=== PATIENT | female | born 1960 | race Caucasian/White ===

== ENCOUNTER 2016-10-02 16:06 | Observation (INO) | payer BC ==
[2016-10-02] MEDS ORDERED: ASPIRIN 81 MG CHEW PO STA (16:42)
[2016-10-02] MEDS ORDERED: NITROGLYCERIN OINT 1 INCH/GM PACKET TOPICAL STA (16:42)
--- NOTE | 2016-10-02 16:45 | ED ---
General Adult HPI - General Chief complaint: Chest Pain Stated complaint: chest pain Time Seen by Provider: 10/02/16 16:37 Source: patient, EMS, RN notes reviewed Mode of arrival: EMS Limitations: no limitations - History of Present Illness Initial comments: Patient is a pleasant 56-year-old female presenting to the emergency department complaining of chest discomfort. Onset of symptoms was just prior to arrival. Patient was eating. Patient had indigestion across her chest with burning in both of her arms. No associated dyspnea, nausea, or diaphoresis. Symptoms were starting to improve however further improved with aspirin and nitroglycerin by EMS. Patient currently is symptom-free. - Related Data Home Medications Medication Instructions Recorded Confirmed Albuterol Inhaler [Ventolin Hfa 2 puff INHALATION RT-Q6H PRN 10/02/16 10/02/16 Inhaler] Assured Nasal [place] 1 spray EA NOSTRIL DAILY PRN 10/02/16 10/02/16 Ibuprofen [Motrin] 800 mg PO DAILY PRN 10/02/16 10/02/16 Ibuprofen/Pseudoephedrine HCl 2 tab PO DAILY PRN 10/02/16 10/02/16 [Advil Cold & Sinus Caplet] Levothyroxine Sodium [Synthroid] 88 mcg PO DAILY 10/02/16 10/02/16 Allergies Allergy/AdvReac Type Severity Reaction Status Date / Time No Known Allergies Allergy Verified 10/02/16 16:44 Review of Systems ROS Statement: Those systems with pertinent positive or pertinent negative responses have been documented in the HPI. ROS Other: All systems not noted in ROS Statement are negative. Constitutional: Denies: fever Eyes: Denies: eye pain ENT: Denies: ear pain Respiratory: Denies: cough Cardiovascular: Reports: chest pain Endocrine: Denies: fatigue Gastrointestinal: Denies: abdominal pain Genitourinary: Denies: dysuria Musculoskeletal: Denies: back pain Skin: Denies: rash Neurological: Denies: weakness Past Medical History Past Medical History: Thyroid Disorder History of Any Multi-Drug Resistant Organisms: None Reported Past Surgical History: Section Past Psychological History: No Psychological Hx Reported Smoking Status: Current every day smoker Past Alcohol Use History: Occasional Past Drug Use History: None Reported General Exam Limitations: no limitations General appearance: alert, in no apparent distress Head exam: Present: atraumatic Eye exam: Present: other (Exophthalmos) ENT exam: Present: normal oropharynx Neck exam: Present: normal inspection Respiratory exam: Present: normal lung sounds bilaterally. Absent: chest wall tenderness Cardiovascular Exam: Present: regular rate, normal rhythm Expanded Peripheral pulses: 2+: Radial (R), Radial (L), Dorsalis Pedis (R), Dorsalis Pedis (L) GI/Abdominal exam: Present: soft. Absent: tenderness Extremities exam: Present: normal inspection Neurological exam: Present: alert Psychiatric exam: Present: normal affect, normal mood Skin exam: Absent: rash Course Vital Signs 10/02/16 10/02/16 16:08 18:00 Temperature 98.1 F 98.1 F Pulse Rate 87 85 Respiratory 18 16 Rate Blood Pressure 174/122 172/104 O2 Sat by Pulse 90 L 96 Oximetry EKG Findings - EKG Comments: EKG Findings:: Normal sinus rhythm at 89. DC 142. QRS T4. QT 386. QTc 469. Normal axis. Normal QRS. Normal ST-T. Medical Decision Making - Medical Decision Making Patient reevaluated and resting comfortably in bed. Patient symptom-free at this time. Patient and family updated on results and plan. Case discussed in detail with Dr. Jean Baptiste, who will admit for Dr. cheung. Secondary to elevation of d-dimer and pleural thickening computed tomography scan of the chest will also be ordered. Admission orders written. IV heparin started. Consult placed for cardiology. - Lab Data Result diagrams: 10/02/16 16:24 10/02/16 16:24 Lab Results 10/02/16 10/02/16 10/02/16 Range/Units 16:24 16:24 16:24 WBC 10.7 H (3.8-10.6) k/uL RBC 4.69 (3.80-5.40) m/uL Hgb 15.6 (11.4-16.0) gm/dL Hct 45.2 (34.0-46.0) % MCV 96.2 (80.0-100.0) fL MCH 33.3 (25.0-35.0) pg MCHC 34.6 (31.0-37.0) g/dL RDW 13.4 (11.5-15.5) % Plt Count 431 (150-450) k/uL Neutrophils % 71 % Lymphocytes % 17 % Monocytes % 5 % Eosinophils % 4 % Basophils % 1 % Neutrophils # 7.6 (1.3-7.7) k/uL Lymphocytes # 1.8 (1.0-4.8) k/uL Monocytes # 0.5 (0-1.0) k/uL Eosinophils # 0.4 (0-0.7) k/uL Basophils # 0.1 (0-0.2) k/uL PT (9.0-12.0) sec INR (<1.1) APTT (22.0-30.0) sec D-Dimer (<0.60) mg/L FEU Sodium 139 (137-145) mmol/L Potassium 4.2 (3.5-5.1) mmol/L Chloride 102 (98-107) mmol/L Carbon Dioxide 26 (22-30) mmol/L Anion Gap 11 mmol/L BUN 14 (7-17) mg/dL Creatinine 0.60 (0.52-1.04) mg/dL Est GFR (MDRD) Af Amer >60 (>60 ml/min/1.73 sqM) Est GFR (MDRD) Non-Af >60 (>60 ml/min/1.73 sqM) Glucose 112 H (74-99) mg/dL Calcium 9.5 (8.4-10.2) mg/dL Magnesium 1.8 (1.6-2.3) mg/dL Total Bilirubin 0.5 (0.2-1.3) mg/dL AST 20 (14-36) U/L ALT 22 (9-52) U/L Alkaline Phosphatase 134 H (38-126) U/L Total Creatine Kinase 85 (30-135) U/L CK-MB (CK-2) 0.6 (0.0-2.4) ng/mL CK-MB (CK-2) Rel Index 0.7 Troponin I <0.012 (0.000-0.034) ng/mL Total Protein 8.2 (6.3-8.2) g/dL Albumin 4.3 (3.5-5.0) g/dL TSH 9.070 H (0.465-4.680) mIU/L Free T4 0.77 L (0.78-2.19) ng/dL Free T3 pg/mL 2.1 L (2.8-5.3) pg/ml 10/02/16 Range/Units 16:24 WBC (3.8-10.6) k/uL RBC (3.80-5.40) m/uL Hgb (11.4-16.0) gm/dL Hct (34.0-46.0) % MCV (80.0-100.0) fL MCH (25.0-35.0) pg MCHC (31.0-37.0) g/dL RDW (11.5-15.5) % Plt Count (150-450) k/uL Neutrophils % % Lymphocytes % % Monocytes % % Eosinophils % % Basophils % % Neutrophils # (1.3-7.7) k/uL Lymphocytes # (1.0-4.8) k/uL Monocytes # (0-1.0) k/uL Eosinophils # (0-0.7) k/uL Basophils # (0-0.2) k/uL PT 11.0 (9.0-12.0) sec INR 1.1 (<1.1) APTT 25.2 (22.0-30.0) sec D-Dimer 1.87 H (<0.60) mg/L FEU Sodium (137-145) mmol/L Potassium (3.5-5.1) mmol/L Chloride (98-107) mmol/L Carbon Dioxide (22-30) mmol/L Anion Gap mmol/L BUN (7-17) mg/dL Creatinine (0.52-1.04) mg/dL Est GFR (MDRD) Af Amer (>60 ml/min/1.73 sqM) Est GFR (MDRD) Non-Af (>60 ml/min/1.73 sqM) Glucose (74-99) mg/dL Calcium (8.4-10.2) mg/dL Magnesium (1.6-2.3) mg/dL Total Bilirubin (0.2-1.3) mg/dL AST (14-36) U/L ALT (9-52) U/L Alkaline Phosphatase (38-126) U/L Total Creatine Kinase (30-135) U/L CK-MB (CK-2) (0.0-2.4) ng/mL CK-MB (CK-2) Rel Index Troponin I (0.000-0.034) ng/mL Total Protein (6.3-8.2) g/dL Albumin (3.5-5.0) g/dL TSH (0.465-4.680) mIU/L Free T4 (0.78-2.19) ng/dL Free T3 pg/mL (2.8-5.3) pg/ml - Radiology Data Radiology results: report reviewed (Computed tomography scan of the brain shows no acute intercranial abnormality. Symmetrical orbital abnormalities possibly related to thyroid, tumor cannot be excluded.), image reviewed (Left lower lateral chest wall pleural thickening.) Critical Care Time Critical Care Time: Yes Total Critical Care Time: 33 Disposition Clinical Impression: Unstable angina pectoris Disposition: ADMITTED IP TO [facility] Condition: Serious Time of Disposition: 18:21
[2016-10-02 16:59] LABS: Basophils # (A) 0.1 k/uL (0-0.2); Basophils % (A) 1 %; CH 33.3; CHCM 34.8; Eosinophils # (A) 0.4 k/uL (0-0.7); Eosinophils % (A) 4 %; HCT 45.2 % (34.0-46.0); HDW 2.67; HGB 15.6 gm/dL (11.4-16.0); Luc # (Auto) 0.18; Luc % (Auto) 2; Lymphocytes # (A) 1.8 k/uL (1.0-4.8); Lymphocytes % (A) 17 %; MCH 33.3 pg (25.0-35.0); MCHC 34.6 g/dL (31.0-37.0); MCV 96.2 fL (80.0-100.0); Mean Platelet Volume 6.7; Monocytes # (A) 0.5 k/uL (0-1.0); Monocytes % (A) 5 %; Neutrophils # (A) 7.6 k/uL (1.3-7.7); Neutrophils % (A) 71 %; RBC 4.69 m/uL (3.80-5.40); RDW 13.4 % (11.5-15.5); WBC 10.7 k/uL (3.8-10.6); WBC (Perox) 10.61
[2016-10-02 17:07] LABS: ALT 22 U/L (9-52); AST 20 U/L (14-36); Alkaline Phosphatase 134 U/L (38-126); Anion Gap 11 mmol/L; Blood Urea Nitrogen 14 mg/dL (7-17); Calcium 9.5 mg/dL (8.4-10.2); Carbon Dioxide 26 mmol/L (22-30); Chloride 102 mmol/L (98-107); Glucose 112 mg/dL (74-99); Magnesium 1.8 mg/dL (1.6-2.3); Non-African American GFR(MDRD) >60 (>60 ml/min/1.73 sqM); Potassium 4.2 mmol/L (3.5-5.1); Sodium 139 mmol/L (137-145); Total Bilirubin 0.5 mg/dL (0.2-1.3); Total Protein 8.2 g/dL (6.3-8.2)
[2016-10-02 17:23] LABS: INR 1.1 (<1.1); Partial Thromboplastin Time 25.2 sec (22.0-30.0)
[2016-10-02 17:28] LABS: Creatine Kinase 85 U/L (30-135)
--- NOTE | 2016-10-02 17:30 | XR ---
EXAMINATION TYPE: XR chest 2V DATE OF EXAM: 10/02/2016 5:24 PM COMPARISON: NONE HISTORY: Chest pain TECHNIQUE: Frontal and lateral views of the chest are obtained. FINDINGS: There is pleural thickening at the lateral left lung base that measures up to 3 cm. There is mild coarsening of interstitial markings. There are no hilar masses. Trachea is midline. There are chest leads. Thoracic spine is intact. IMPRESSION: There is moderate pleural thickening at the left lower lateral chest wall that could rel ate to loculated pleural fluid or pleural based mass or pulmonary infarct. Follow-up is recommended. There is mild pulmonary interstitial edema.
[2016-10-02 17:39] LABS: Creatine Kinase MB 0.6 ng/mL (0.0-2.4); Troponin I <0.012 ng/mL (0.000-0.034)
[2016-10-02] MEDS ORDERED: RX INFO: IV CONTRAST WAS GIVEN 1 EACH MISC MISCELLANE PRN (18:08)
--- NOTE | 2016-10-02 18:08 | CT ---
EXAMINATION TYPE: CT brain wo con DATE OF EXAM: 10/02/2016 5:41 PM COMPARISON: NONE HISTORY: Patient poor historian. Patient denies head complaints. Patient complains of chest pain. CT DLP: 1061 mGycm Automated exposure control for dose reduction was used. FINDINGS: Ventricles and sulci appear normal. There is no mass effect nor midline shift. There is no sign of in tracranial hemorrhage. The calvarium is intact. There is mild mucosal thickening in the ethmoid sinus . There is symmetric bulbous enlargement of the inferior rectus muscles at the apex of both bony orbi ts. This measures 1.3 cm in diameter. There is some thickening of the medial rectus muscles. The calv arium is intact. The orbits are not completely evaluated and are not entirely included on the exam. IMPRESSION: No intracranial abnormality seen. There are symmetric orbital abnormalities I could relate to bilater al thyroid ophthalmopathy. Tumor cannot be excluded. Clinical correlation is recommended. Minimal eth moid sinusitis.
[2016-10-02] MEDS ORDERED: NITROGLYCERIN SL TABS 0.4 MG TAB SUBLINGUAL PRN (18:21)
[2016-10-02] MEDS ORDERED: HEPARIN SODIUM,PORCINE 5,000 UNIT/ML 1 ML VIAL IV PRN (18:21)
[2016-10-02] MEDS ORDERED: HEPARIN SODIUM,PORCINE 5,000 UNIT/ML 1 ML VIAL IV ONE (18:21)
[2016-10-02] MEDS ORDERED: ATENOLOL 25 MG TAB PO STA (18:23)
[2016-10-02] MEDS ORDERED: HEPARIN SODIUM,PORCINE/D5W PMX 25,000 UNIT in DEXTROSE/WATER 1 500ML.BAG IV SCH (18:30)
[2016-10-02 18:59] VITALS: RESP 18
--- NOTE | 2016-10-02 19:17 | CT ---
EXAMINATION TYPE: CT angio chest DATE OF EXAM: 10/02/2016 6:59 PM COMPARISON: NONE HISTORY: Patient complains of episode of chest pain today. CT DLP: 516 mGycm Automated exposure control for dose reduction was used. CONTRAST: CTA scan of the thorax is performed with IV Contrast, patient injected with 100 mL of Omnipaque 350, pulmonary embolism protocol. There are 3-D post processed images.. FINDINGS: There is extensive interstitial infiltrate in both lungs with groundglass density. There is reticular infiltrate in the periphery of both lungs. There is pleural thickening along the left lateral chest wall that appears loculated and not mobile. There is no pericardial effusion. I see no filling defects in the pulmonary arteries. There are a few bronchial and mediastinal lymph n odes that measure up to 1 cm. There is no evidence of aortic aneurysm or dissection. The bony thorax appears intact. IMPRESSION: NO EVIDENCE OF PULMONARY EMBOLISM. EXTENSIVE INTERSTITIAL LUNG DISEASE. THERE IS LOCULATED PLEURAL THICKENING ON THE LEFT LATERAL CHEST WALL AND LEFT LUNG BASE. I WOULD CONS IDER CHRONIC EMPYEMA. TUMOR IS NOT EXCLUDED. THERE IS MILD MEDIASTINAL ADENOPATHY AND BRONCHIAL ADENO [place] PROBABLY DUE TO INFLAMMATORY DISEASE.
[2016-10-02] MEDS ORDERED: ACETAMINOPHEN TAB 325 MG TAB PO PRN (21:17)
[2016-10-02 21:39] VITALS: BMI 30.3
[2016-10-02] MEDS ORDERED: ENALAPRILAT 1.25 MG/ML 1 ML VIAL IVP PRN (22:42)
[2016-10-02] MEDS ORDERED: LEVOFLOXACIN 500MG-D5W PMX 500 MG in DEXTROSE/WATER 1 100ML.BAG IVPB SCH (22:45)
[2016-10-02] MEDS ORDERED: IBUPROFEN 200 MG TAB PO PRN (22:46)
[2016-10-02] MEDS ORDERED: ALBUTEROL NEBULIZED 2.5 MG/3 ML INHALATION PRN (22:46)
[2016-10-02] MEDS ORDERED: ASSURED EA NOSTRIL PRN (22:46)
[2016-10-03] MEDS: NITROGLYCERIN OINT 1 INCH/GM PACKET TOPICAL SCH ×3 (00:24→13:19)
[2016-10-03 00:26] LABS: Creatine Kinase 84 U/L (30-135)
[2016-10-03] MEDS: PIPERACILLIN-TAZOBACTAM 3.375 GM in DEXTROSE/WATER 1 50ML.BAG IVPB SCH ×2 (00:28→10:07)
[2016-10-03 00:37] LABS: Creatine Kinase MB 0.6 ng/mL (0.0-2.4); Troponin I <0.012 ng/mL (0.000-0.034)
[2016-10-03] MEDS ORDERED: LEVOTHYROXINE 88 MCG TAB PO SCH (06:30)
[2016-10-03 06:54] LABS: Mean Platelet Volume 6.9
[2016-10-03 07:17] LABS: Cholesterol 229 mg/dL (<200); HDL Cholesterol 34 mg/dL (40-60); Triglycerides 255 mg/dL (<150)
[2016-10-03 07:35] LABS: Creatine Kinase 75 U/L (30-135)
[2016-10-03 07:48] LABS: Creatine Kinase MB 0.6 ng/mL (0.0-2.4); Troponin I <0.012 ng/mL (0.000-0.034)
--- NOTE | 2016-10-03 08:42 | P.CRDCN ---
History of Present Illness Consult date: 10/03/16 History of present illness: This is Dr. Damon dictating a consultation on this 56-year-old female who was admitted to the hospital with complaints of chest pain. Patient has history of hypothyroidism, and chronic smoking. Yesterday apparently she started having a discomfort across the chest from axilla to axilla when she was sitting. This was not associated with any nausea vomiting or sweating. She was not short of breath but she started feeling some aching sensation in the both charts near the mandibular joints. She was concerned and and went to the EMS station where one of her friends works. They put on monitor and gave her some nitro. By the time they gave the nitro, the pain has already subsided. Her blood pressure, however, has been high since admission. She required IV Vasotec. Today her blood pressure is normal. Her EKG did not reveal any acute changes. Cardiac enzyme studies are negative. Chest x-ray showed left-sided pleural thickening and/or pleural-based mass. She gives history of having a pneumothorax or fractured ribs requiring chest tube placement in the past and this could be related to that. We will get an echo [place] today. We'll continue medical therapy. He patient remains stable, patient will be discharged home within 24 hours and a outpatient stress test could be arranged. However the patient hasn't had recurrence of chest pains, further cardiac evaluation to be done as an inpatient Review of Systems REVIEW OF SYSTEMS: CONSTITUTIONAL:. Patient is doing well. No complaints of fever or chills EYES: Denies diplopia, blurring of vision EARS, NOSE, MOUTH, THROAT: Denies headaches, denies sore throat. CARDIOVASCULAR: As per the chart RESPIRATORY: As per the chart and patient has history of previous pneumothorax and chest tube placement GASTROINTESTINAL: Denies change in appetite, denies abdominal pain, denies diarrhea GENITOURINARY: Denies hematuria, denies infections. MUSKULOSKELETAL: Denies pain, denies swelling. Denies any cramps or claudication INTEGUMENTARY: Denies rash, denies eczema. NEUROLOGICAL: Denies focal weakness, or visual disturbance. Denies any dizziness or syncope PSYCHIATRIC: Denies anxiety, denies depression. HEMATOLOGIC/LYMPHATIC: Denies any bleeding, denies enlarged lymph nodes. Past Medical History Past Medical History: Cancer, Osteoarthritis (OA), Thyroid Disorder Additional Past Medical History / Comment(s): skin CA removed from breast History of Any Multi-Drug Resistant Organisms: None Reported Past Surgical History: Section Additional Past Surgical History / Comment(s): C-sec X2, uterine ablation, eye surgery from [facility] Dx, sinus surgery Past Anesthesia/Blood Transfusion Reactions: No Reported Reaction Past Psychological History: No Psychological Hx Reported Smoking Status: Former smoker Past Alcohol Use History: Occasional Past Drug Use History: None Reported - Past Family History Mother Family Medical History: Coronary Artery Disease (CAD), CVA/TIA, Diabetes Mellitus, Hypertension Father Family Medical History: Diabetes Mellitus, Rheumatoid Arthritis (RA) Additional Family Medical History / Comment(s): pericardial fluid removal x2 Brother(s) Family Medical History: Diabetes Mellitus Medications and Allergies Home Medications Medication Instructions Recorded Confirmed Type Albuterol Inhaler [Ventolin Hfa 2 puff INHALATION RT-Q6H PRN 10/02/16 10/02/16 History Inhaler] Assured Nasal [place] 1 spray EA NOSTRIL DAILY PRN 10/02/16 10/02/16 History Ibuprofen [Motrin] 800 mg PO DAILY PRN 10/02/16 10/02/16 History Ibuprofen/Pseudoephedrine HCl 2 tab PO DAILY PRN 10/02/16 10/02/16 History [Advil Cold & Sinus Caplet] Levothyroxine Sodium [Synthroid] 88 mcg PO DAILY 10/02/16 10/02/16 History Allergies Allergy/AdvReac Type Severity Reaction Status Date / Time adhesive tape AdvReac Rash/Hives Verified 10/02/16 21:53 diphenhydramine AdvReac Unknown Verified 10/02/16 21:47 [From Benadryl] Physical Exam Vitals: Vital Signs Temp Pulse Pulse Resp BP BP Pulse Ox 10/03/16 08:00 98.2 F 69 18 141/86 95 10/03/16 04:00 98.2 F 73 18 134/75 92 L 10/03/16 00:00 70 18 10/02/16 23:18 83 18 129/69 93 L 10/02/16 19:44 98.1 F 75 18 165/101 95 10/02/16 18:57 97.6 F 88 18 160/89 96 Intake and Output 10/02/16 10/03/16 10/03/16 22:59 06:59 14:59 Intake Total 260 695 Balance 260 695 Intake: IV 160 320 0.9 NS @ KVO 80 160 Heparin Sodium,Porcine/ 80 160 D5w Pmx 25,000 unit In Dextrose/Water 1 500ml. bag @ 20 mls/hr IV .Q24H [facility] Rx#:[id number] Intake, IV Titration 100 175 Amount Heparin Sodium,Porcine/ 125 D5w Pmx 25,000 unit In Dextrose/Water 1 500ml. bag @ 20 mls/hr IV .Q24H [facility] Rx#:[id number] Levofloxacin 500Mg-D5w 100 Pmx 500 mg In Dextrose/ Water 1 100ml.bag @ 100 mls/hr IVPB HS [facility] Rx#: [id number] Piperacillin-Tazobactam 3 50 .375 gm In Dextrose/Water 1 50ml.bag @ 12.5 mls/hr IVPB Q8HR [facility] Rx#: [id number] Oral 200 Other: # Voids 2 Weight 85.4 kg Results 10/03/16 06:25 10/02/16 16:24 Cardiac Enzymes 10/02/16 10/03/16 Range/Units 23:20 06:25 CK-MB (CK-2) 0.6 0.6 (0.0-2.4) ng/mL Troponin I <0.012 <0.012 (0.000-0.034) ng/mL Coagulation 10/02/16 10/03/16 Range/Units 23:20 06:25 APTT 30.3 H 31.8 H (22.0-30.0) sec Lipids 10/03/16 Range/Units 06:25 Triglycerides 255 H (<150) mg/dL Cholesterol 229 H (<200) mg/dL HDL Cholesterol 34 L (40-60) mg/dL CBC 10/03/16 Range/Units 06:25 Plt Count 405 (150-450) k/uL Current Medications Generic Name Dose Route Start Last Admin Trade Name Freq PRN Reason Stop Dose Admin Acetaminophen 650 mg 10/02/16 21:17 10/02/16 21:44 Tylenol Tab PO 650 mg Q6HR PRN Administration Fever and/ or Mild Pain Hydrocodone Bitart/Acetaminophen 1 each 10/02/16 22:44 Ruth 5-325 PO Q6HR PRN Moderate Pain Albuterol Sulfate 2.5 mg 10/02/16 22:46 Ventolin Nebulized INHALATION RT-Q6H PRN Shortness Of Breath Aspirin 325 mg 10/03/16 09:00 Aspirin PO DAILY [facility] Enalaprilat 1.25 mg 10/02/16 22:42 Vasotec IVP Q6HR PRN Blood Pressure - High Heparin Sodium (Porcine) 0 unit 10/02/16 18:21 Heparin IV Q6HR PRN Low PTT Protocol Heparin Sodium/Dextrose 25,000 500 mls @ 20 mls/hr 10/02/16 18:30 10/03/16 00 :48 unit/ IV Solution IV 1,300 unit/hr .Q24H [facility] 26 mls/hr Protocol Titration Levofloxacin 500 mg/ IV 100 mls @ 100 mls/hr 10/02/16 22:45 10/02/16 23:30 Solution IVPB 100 mls/hr HS [facility] Administration Piperacillin/Tazobactam/ 50 mls @ 12.5 mls/hr 10/03/16 00:00 10/03/16 00:28 Dextrose 3.375 gm/ IV Solution IVPB 12.5 mls/hr Q8HR [facility] Administration Levothyroxine Sodium 88 mcg 10/03/16 06:30 10/03/16 06:44 Synthroid PO 88 mcg 0630 [facility] Administration Miscellaneous Information 1 each 10/02/16 18:08 Rx Info: Iv Contrast Was Given MISCELLANE 10/04/16 18:08 DAILY PRN Per Protocol Nicotine 1 patch 10/03/16 09:00 Habitrol 21mg/24hr Patch TRANSDERM DAILY [facility] Nitroglycerin 1 inch 10/03/16 00:00 10/03/16 06:24 Nitro-Bid Oint TOPICAL Not Given Q6HR [facility] Nitroglycerin 0.4 mg 10/02/16 18:21 Nitrostat SUBLINGUAL Q5M PRN Chest Pain Intake and Output 10/02/16 10/03/16 10/03/16 22:59 06:59 14:59 Intake Total 260 695 Balance 260 695 Intake: IV 160 320 0.9 NS @ KVO 80 160 Heparin Sodium,Porcine/ 80 160 D5w Pmx 25,000 unit In Dextrose/Water 1 500ml. bag @ 20 mls/hr IV .Q24H [facility] Rx#:[id number] Intake, IV Titration 100 175 Amount Heparin Sodium,Porcine/ 125 D5w Pmx 25,000 unit In Dextrose/Water 1 500ml. bag @ 20 mls/hr IV .Q24H [facility] Rx#:[id number] Levofloxacin 500Mg-D5w 100 Pmx 500 mg In Dextrose/ Water 1 100ml.bag @ 100 mls/hr IVPB HS [facility] Rx#: [id number] Piperacillin-Tazobactam 3 50 .375 gm In Dextrose/Water 1 50ml.bag @ 12.5 mls/hr IVPB Q8HR [facility] Rx#: [id number] Oral 200 Other: # Voids 2 Weight 85.4 kg 10/03/16 06:25 EKG Interpretations (text) Sinus rhythm Assessment and Plan (1) Chest pain Status: Acute (2) Hypertension Status: Acute (3) Hypothyroidism Status: Acute (4) Smoking Status: Acute Plan: Patient had a prolonged chest pain with the Pain. Anginal syndrome to be considered. Cardiac enzymes studies and EKGs are negative. We'll treat her with aspirin, beta jhonatan, nitrates and increase her activity. He patient remains stable, patient could be discharged home to have an stress test as an outpatient. We'll get an echocardiogram. However, if patient has any recurrence of pain, inpatient evaluation including cardiac catheterization to be considered
[2016-10-03] MEDS ORDERED: NICOTINE 21MG/24HR PATCH TRANSDERM SCH (09:00)
[2016-10-03] MEDS ORDERED: METOPROLOL TARTRATE 25 MG TAB PO SCH (09:00)
[2016-10-03] MEDS ORDERED: ASPIRIN 325 MG TAB PO SCH (09:00)
[2016-10-03] MEDS: HYDROcodone/APAP 5-325MG 1 EACH TAB PO PRN ×2 (09:26→15:17)
[2016-10-03 11:55] VITALS: BP 117/70; PULSE 71; TEMP 97.9
--- NOTE | 2016-10-03 13:29 | P.HPIM ---
History of Present Illness H&P Date: 10/03/16 Chief Complaint: Chest Pain Patient is a 56-year-old female who presented to [facility] was a chief complaint of chest pain Patient describes a pressure sensation in the middle of her chest radiating to the left axillary area, there was no nausea or vomiting no diaphoresis and no shortness of breath, patient stated that her chest pain resolved while she was in the emergency room . She was started on IV heparin and was admitted to 24- hour observation unit. Cardiology consultation was requested. D-dimer was elevated in the emergency room computed tomography scan of the chest was done and did not reveal any evidence of pulmonary embolism however it revealed evidence of pleural thickening and enlarged lymph nodes, pulmonary consultation was requested. Patient has a known history of hypothyroidism she is maintained on Synthroid 88 g by mouth daily, her TSH free T4 wherever abnormal showing evidence of hypothyroidism, patient states that she has been taking her Synthroid regularly. Past Medical History Past Medical History: Cancer, Osteoarthritis (OA), Thyroid Disorder Additional Past Medical History / Comment(s): skin CA removed from breast History of Any Multi-Drug Resistant Organisms: None Reported Past Surgical History: Section Additional Past Surgical History / Comment(s): C-sec X2, uterine ablation, eye surgery from [facility], sinus surgery Past Anesthesia/Blood Transfusion Reactions: No Reported Reaction Past Psychological History: No Psychological Hx Reported Smoking Status: Former smoker Past Alcohol Use History: Occasional Past Drug Use History: None Reported - Past Family History Mother Family Medical History: Coronary Artery Disease (CAD), CVA/TIA, Diabetes Mellitus, Hypertension Father Family Medical History: Diabetes Mellitus, Rheumatoid Arthritis (RA) Additional Family Medical History / Comment(s): pericardial fluid removal x2 Brother(s) Family Medical History: Diabetes Mellitus Medications and Allergies Home Medications Medication Instructions Recorded Confirmed Type Albuterol Inhaler [Ventolin Hfa 2 puff INHALATION RT-Q6H PRN 10/02/16 10/02/16 History Inhaler] Assured Nasal [place] 1 spray EA NOSTRIL DAILY PRN 10/02/16 10/02/16 History Ibuprofen [Motrin] 800 mg PO DAILY PRN 10/02/16 10/02/16 History Ibuprofen/Pseudoephedrine HCl 2 tab PO DAILY PRN 10/02/16 10/02/16 History [Advil Cold & Sinus Caplet] Levothyroxine Sodium [Synthroid] 88 mcg PO DAILY 10/02/16 10/02/16 History Allergies Allergy/AdvReac Type Severity Reaction Status Date / Time adhesive tape AdvReac Rash/Hives Verified 10/02/16 21:53 diphenhydramine AdvReac Unknown Verified 10/02/16 21:47 [From Benadl] Physical Exam Vitals: Vital Signs Temp Pulse Pulse Resp BP BP Pulse Ox 10/03/16 11:54 97.9 F 71 18 117/70 94 L 10/03/16 08:00 98.2 F 69 18 141/86 95 10/03/16 04:00 98.2 F 73 18 134/75 92 L 10/03/16 00:00 70 18 10/02/16 23:18 83 18 129/69 93 L 10/02/16 19:44 98.1 F 75 18 165/101 95 10/02/16 18:57 97.6 F 88 18 160/89 96 Intake and Output 10/02/16 10/03/16 10/03/16 22:59 06:59 14:59 Intake Total 260 695 Balance 260 695 Intake: IV 160 320 0.9 NS @ KVO 80 160 Heparin Sodium,Porcine/ 80 160 D5w Pmx 25,000 unit In Dextrose/Water 1 500ml. bag @ 20 mls/hr IV .Q24H [facility] Rx#:[id number] Intake, IV Titration 100 175 Amount Heparin Sodium,Porcine/ 125 D5w Pmx 25,000 unit In Dextrose/Water 1 500ml. bag @ 20 mls/hr IV .Q24H [facility] Rx#:[id number] Levofloxacin 500Mg-D5w 100 Pmx 500 mg In Dextrose/ Water 1 100ml.bag @ 100 mls/hr IVPB HS [facility] Rx#: [id number] Piperacillin-Tazobactam 3 50 .375 gm In Dextrose/Water 1 50ml.bag @ 12.5 mls/hr IVPB Q8HR [facility] Rx#: [id number] Oral 200 Other: Voiding Method Toilet # Voids 2 Weight 85.4 kg In general patient is alert and oriented 3 in no apparent distress HEENT head normocephalic and atraumatic Neck is supple no JVD no goiter no lymphadenopathy Chest exam reveals a few scattered crackles no wheezing Cardiac exam reveals regular heart sounds S1 and S2 no gallops no murmurs Abdomen is soft nontender no organomegaly Extremity exam reveals no edema no cyanosis or clubbing Results CBC & Chem 7: 10/03/16 06:25 10/02/16 16:24 Labs: Abnormal Lab Results - Last 24 Hours (Table) 10/02/16 10/03/16 10/03/16 Range/Units 23:20 06:25 06:25 APTT 30.3 H 31.8 H (22.0-30.0) sec Triglycerides 255 H (<150) mg/dL Cholesterol 229 H (<200) mg/dL LDL Cholesterol, Calc 144 H (0-99) mg/dL HDL Cholesterol 34 L (40-60) mg/dL Thrombosis Risk Factor Assmnt - Choose All That Apply Each Factor Represents 1 point: Age 41-60 years Thrombosis Risk Factor Assessment Total Risk Factor Score: 1 Thrombosis Risk Factor Assessment Level: Low Risk Assessment and Plan Plan: #1 episode of chest pain resolved no recurrence of chest pain cardiac enzymes and EKGs are normal so far, echo cardiogram done results are still pending #2 abnormal computed tomography scan of the chest pulmonary consultation was requested awaiting input #3 hypothyroidism will increase dose of Synthroid from 88 g to 100 g daily #4 underlying history of hypertension with elevated blood pressure readings during this admission requiring use of IV Vasotec At this time 1 awaiting echocardiogram results awaiting input from pulmonary will follow closely
--- NOTE | 2016-10-03 14:35 | P.DS ---
Providers Date of admission: 10/02/16 18:21 Expected date of discharge: 10/03/16 Attending physician: Reuben Jean Baptiste Consults: 10/02/16 22:45 Consult Physician Urgent Consulting Provider: Raoul Saul Reason/Comments: freelance writer Do you want consulting provider notified?: Yes, Notify in am [facility] Course: Diagnosis on discharge #1 episode of chest pain And BRCA2 hypothyroidism #3 abnormal computed tomography scan of the chest was pleural thickening and enlarged lymph nodes Hospital course patient is a 56-year-old female who presented to [facility] was a chief complaint of chest pain Serial EKG and cardiac enzymes did not reveal any evidence of acute myocardial infarction She did not have any recurrence of her chest pain She was evaluated by cardiology and was cleared for discharge she would undergo stress test as outpatient D dimer was elevated on presentation patient underwent computed tomography scan of the chest that did not reveal any evidence of pulmonary embolism However computed tomography scan revealed patchy infiltrates pleural thickening and enlarged lymph nodes Patient was started on IV antibiotics, pulmonary consultation was requested Patient was seen by Dr. Saul and was cleared for discharge Follow-up with him for further evaluation as outpatient with possible bronchoscopy Patient was counseled in length during this hospitalization more than 10 minutes for smoking cessation she was given a prescription for NicoDerm patches She was also given a prescription for Levaquin 500 milligram 1 daily for 5 more days Patient had evidence of hypothyroidism not well controlled her dose of Synthroid was increased from 88 g to 100 g daily she should be followed in one 1 months to 2 months with repeat TSH and adjustment of her Synthroid dose if needed Patient also given a prescription for sublingual nitro and aspirin and metoprolol 25 mg twice daily Otherwise she will continue on her same home medication as prior to admission Patient Condition at Discharge: Serious Plan - Discharge Summary New Discharge Prescriptions: Levothyroxine Sodium [Synthroid] 100 mcg PO DAILY #30 tab Discharge Medication List Albuterol Inhaler [Ventolin Hfa Inhaler] 2 puff INHALATION RT-Q6H PRN 10/02/16 [ History] Assured Nasal Daykin 1 spray EA NOSTRIL DAILY PRN 10/02/16 [History] Ibuprofen [Motrin] 800 mg PO DAILY PRN 10/02/16 [History] Ibuprofen/Pseudoephedrine HCl [Advil Cold & Sinus Caplet] 2 tab PO DAILY PRN [History] Aspirin 325 mg PO DAILY tab 10/03/16 [Rx] Levofloxacin [Levaquin] 500 mg PO HS tab 10/03/16 [Rx] Levothyroxine Sodium [Synthroid] 100 mcg PO DAILY #30 tab 10/03/16 [Rx] Metoprolol Tartrate [Lopressor] 25 mg PO BID tab 10/03/16 [Rx] Nicotine 21Mg/24Hr Patch [Habitrol] 1 patch TRANSDERM DAILY patch 10/03/16 [Rx] Nitroglycerin Sl Tabs [Nitrostat] 0.4 mg SUBLINGUAL Q5M PRN #0 tab 10/03/16 [Rx] Follow up Appointment(s)/Referral(s): Haleigh Armenta MD [Primary Care Provider] - 1-2 days
--- NOTE | 2016-10-03 15:21 | ECHOF ---
Referral Reason:ua MEASUREMENTS -------- HEIGHT: 165.1 cm WEIGHT: 85.3 kg BP: 130/50 RVIDd: 2.6 cm (< 3.3) IVSd: 1.1 cm (0.6 - 1.1) LVIDd: 5.5 cm (3.9 - 5.3) LVPWd: 1.2 cm (0.6 - 1.1) IVSs: 1.3 cm LVIDs: 4.8 cm LVPWs: 1.3 cm LA Diam: 3.2 cm (2.7 - 3.8) LAESV Index (A-L): 29.69 ml/m Ao Diam: 2.8 cm (2.0 - 3.7) AV Cusp: 1.4 cm (1.5 - 2.6) LA Diam: 3.6 cm (2.7 - 3.8) MV EXCURSION: 20.477 mm (> 18.000) MV EF SLOPE: 89 mm/s (70 - 150) EPSS: 1.0 cm MV E Elvis: 0.86 m/s MV DecT: 216 ms MV A Elvis: 0.74 m/s MV E/A Ratio: 1.15 RAP: 5.00 mmHg RVSP: 17.25 mmHg FINDINGS -------- Sinus rhythm. This was a technically adequate study. There is mild concentric left ventricular hypertrophy. Overall left ventricular systolic function is low-normal with, an EF between 50 - 55 %. The right ventricle is normal in size. LA is moderately dilated 34-39 ml/m2 The right atrial size is normal. There is mild aortic valve sclerosis. There is no evidence of aortic regurgitation. Mild mitral regurgitation is present. Mild tricuspid regurgitation present. There is no evidence of pulmonary hypertension. The right ventricular systolic pressure, as measured by Doppler, is 17.25mmHg. There is no pulmonic regurgitation present. The aortic root size is normal. There is no pericardial effusion. CONCLUSIONS -------- 1. There is mild concentric left ventricular hypertrophy. 2. LA is moderately dilated 34-39 ml/m2 3. There is mild aortic valve sclerosis. 4. Mild mitral regurgitation is present. 5. Mild tricuspid regurgitation present. 6. There is no evidence of pulmonary hypertension. 7. The right ventricular systolic pressure, as measured by Doppler, is 17.25mmHg. SECURITY INSPECTOR: Marleny Welch RDCS
--- NOTE | 2016-10-03 15:33 | CONS ---
DATE OF CONSULTATION: 56-year-old female who presented to the emergency department on October 02. She saw Dr. Hill down there. She apparently was complaining of the jaw and chest discomfort. The patient apparently started having complaints right prior to admission. She was apparently eating at that time. She apparently had some indigestion across her chest with burning in both her lungs. I did not have any associated dyspnea, nausea, or diaphoresis. When she got to the emergency room, her symptoms were starting to improve. She also received some aspirin and nitroglycerin by EMS. Her home medications include albuterol nasal spray, ibuprofen, Advil, levothyroxine. ALLERGIES: Denied. Medical history includes hypothyroidism. Surgical history includes a . Social is positive for ongoing tobacco use. Denies any illicit drug use. Occasional alcohol use. Her primary doctor is Dr. Armenta. Occupational history is noncontributory. REVIEW OF SYSTEMS: CONSTITUTIONAL: Negative. NEUROLOGICAL: Negative. HEENT: Negative. CARDIOVASCULAR: See above, chest pain and jaw pain. PULMONARY: Negative. GI/: Negative. RHEUMATOLOGICAL/IMMUNOLOGIC: Negative. ENDOCRINOLOGIC: Negative. The patient had a CT scan of the chest which showed no evidence of pulmonary embolism. She did have extensive interstitial disease in a loculated pleural thickening on the left lateral chest wall, probably related to previous episode of pneumothorax and chest tube placement. This was many years back. Current vital signs show temperature 97.9, heart rate 71, respiratory rate 18, blood pressure 117/70, mean 85, room-air saturation 95%. Appears in no acute distress. Resting comfortably. HEENT examination is grossly unremarkable save for proptosis from Graves' disease. Mucous membranes are moist. No oral lesions. Neck is supple. Full range of motion. No adenopathy without megaly. Cardiovascular examination reveals regular rhythm and rate. S1, S2 normal. No S3, S4 or murmur. Lungs reveal a few scattered crackles. Breath sounds equal. No wheezes. No rhonchi. Abdomen is soft. Bowel sounds are heard. No masses or tenderness. Extremities are intact. No cyanosis, clubbing or edema. Skin is without rash or lesions. Neurological examination is brief, but nonfocal. Labs are reviewed. White count 10.7, hemoglobin and hematocrit, and platelet count are all normal. PT, PTT and INR are all normal. D-dimer is 1.87. Sodium, potassium, chloride and CO2 all normal. BUN and creatinine were normal. Alkaline phosphatase 134. Troponins were negative x3. TSH was 9.070, FT4 0.77 and free T3 2.1. She is supposed to be on thyroid hormone and obviously will need some additionally thyroid hormone because she is not properly controlled. X-rays including the chest x-ray and a CAT scan were reviewed. ASSESSMENT: 1. Chest pain with jaw pain, rule out ischemic heart disease/acute coronary syndrome. 2. Probable underlying lung disease in the form of interstitial disease and/or chronic obstructive pulmonary disease from tobacco use. 3. Previous history of pneumothorax with chest tube placement; hence, the explanation for the lateral pleural thickening as seen on CAT scan and chest x-ray. 4. History of hypothyroidism. 5. History of chronic tobacco use. 6. History of previous Graves' disease with thyroid oculopathy and proptosis. PLAN: I gave the patient my card. She should come and see me in the office. She would need a thorough evaluation including PFT and a 6 minute walk distance. Additional recommendations and suggestions are forthcoming. She may have a combination of both obstructive and restrictive lung disease.
[2016-10-03] MEDS ORDERED: LEVOFLOXACIN 500 MG TAB PO SCH (21:00)
== END 2016-10-03 15:41 | disposition home or self-care (01) ==
LOC: EC 16:06 → 3OBS 18:21
PROVIDERS: ADMIT Internal Medicine; ATTEND Internal Medicine
DX: R07.9 Chest pain, unspecified (principal); R68.84 Jaw pain; Z79.899 Other long term (current) drug therapy; F17.200 Nicotine dependence, unspecified, uncomplicated; E03.9 Hypothyroidism, unspecified; I10 Essential (primary) hypertension; R59.9 Enlarged lymph nodes, unspecified; K30 Functional dyspepsia; J92.9 Pleural plaque without asbestos; H05.20 Unspecified exophthalmos
CPT/HCPCS: 99291 ×2; 96365 ×2; 96376 ×2; 36415; 93005; 93306; 85379; 84439; 84481; 80061; 80053; 82550 ×2; 82553 ×2; 83735; 84443; 84484 ×2; 85025; 85049; 85610; 85730 ×2; 71020; 70450; 71275; G0378 ×2; J1644 ×2; Q9967; J1956; J2543; 96366; 96367; 96368

== ENCOUNTER → 2016-10-15 | Outpatient (CLI) | payer BC ==
[~2016-10-15] MED LIST: REGADENOSON 0.4 MG/5 ML SYRINGE IV ONE
--- NOTE | 2016-10-15 12:04 | EST ---
DATE OF SERVICE: 10/15/2016 AGE: 56Y SEX: F HT: 5'5" WT: 185 lbs. Lexiscan Cardiolite Stress Test *Heart Rate Blood Pressure *Rest: 75 Rest: 134/90 * *Max. Achieved: 90 Maximum BP: 146/91 85% PMHR: 140 100% PMHR: 165 *METS: - INDICATIONS: Chest pressure. MEDICATIONS: Synthroid, metoprolol, aspirin. Baseline EKG revealed a normal sinus rhythm without significant ST-T changes. With Lexiscan administration, heart rate changed from 75 to 90 beats per minute and blood pressure changed from 134/90 to 146/91. EKG remained unremarkable and patient had transient headache and shortness of breath. By EKG criteria, this is an unremarkable Lexiscan stress test. The nuclear scan results, which are more pertinent, will be reported by the radiologist.
--- NOTE | 2016-10-15 14:51 | NM ---
EXAMINATION TYPE: NM stress lexiscan cardiolite DATE OF EXAM: 10/15/2016 2:03 PM COMPARISON: NONE HISTORY: Precordial chest pain TECHNIQUE: Cardiolite stress test was performed following the administration of 11.0 and 27.4 mCi of technetium 99m Cardiolite. 4 mg of Lexiscan was also administered. FINDINGS: Review of stress and rest SPECT images demonstrates decreased perfusion on the rest images involving the anterior wall which worsen following stress imaging. There is also mild decreased perfusion invol ving the cardiac apical region. Gated analysis shows hypokinesia involving the septum near the base o f the left ventricle With an estimated left ventricular ejection fraction of 48 %. IMPRESSION: Findings as discussed for which I cannot exclude stress-induced ischemia involving the anterior wall and cardiac apex.
== END | disposition home or self-care (01) ==
LOC: RADNMMAIN 08:45
PROVIDERS: ATTEND Family Medicine
DX: R07.9 Chest pain, unspecified (principal)
CPT/HCPCS: 93017; 78452; A9500; J2785

== ENCOUNTER → 2016-12-18 | Outpatient (CLI) | payer BC ==
[2016-12-18 13:36] LABS: Anion Gap 10 mmol/L; Blood Urea Nitrogen 14 mg/dL (7-17); Carbon Dioxide 28 mmol/L (22-30); Chloride 98 mmol/L (98-107); Non-African American GFR(MDRD) >60 (>60 ml/min/1.73 sqM); Potassium 5.2 mmol/L (3.5-5.1); Sodium 136 mmol/L (137-145)
[2016-12-18 13:42] LABS: CH 32.1; CHCM 33.8; HCT 47.8 % (34.0-46.0); HDW 2.33; HGB 16.4 gm/dL (11.4-16.0); MCH 32.7 pg (25.0-35.0); MCHC 34.2 g/dL (31.0-37.0); MCV 95.5 fL (80.0-100.0); Mean Platelet Volume 7.9; RBC 5.01 m/uL (3.80-5.40); RDW 14.3 % (11.5-15.5); WBC 8.6 k/uL (3.8-10.6)
== END | disposition home or self-care (01) ==
LOC: LABPAT 12:41
PROVIDERS: ATTEND Internal Medicine Cardiovascular Disease
DX: Z01.812 Encounter for preprocedural laboratory examination (principal); I25.10 Atherosclerotic heart disease of native coronary artery without angina pectoris
CPT/HCPCS: 80051; 82565; 84520; 85027

== ENCOUNTER 2016-12-23 07:56 | Day surgery (SDC) | payer BC ==
[2016-12-21 12:28] VITALS: BMI 30.4
[~2016-12-23 07:56] MED LIST changes: +ALPRAZolam 0.25 MG TAB PO PRN; +ALPRAZolam 0.5 MG TAB PO PRN; +ASPIRIN 325 MG TAB PO STA; +ATORVASTATIN 80 MG TAB PO STA; +NITROGLYCERIN SL TABS 0.4 MG TAB SUBLINGUAL PRN; -REGADENOSON 0.4 MG/5 ML SYRINGE IV ONE; +SODIUM CHLORIDE 0.9% 1,000 ML in EMPTY BAG 1 BAG IV ONE
[2016-12-23] MEDS ORDERED: IV FLUID CONTINUATION 1,000 ML IV ONE (08:50)
[2016-12-23] MEDS ORDERED: fentaNYL (PF) 50 MCG/ML 2 ML AMP ONE (08:51)
[2016-12-23] MEDS ORDERED: LIDOCAINE 2% INJ 20 MG/ML (20 ML MDV) ONE (08:51)
[2016-12-23] MEDS ORDERED: MIDAZOLAM 2 MG/2 ML VIAL ONE (08:51)
[2016-12-23] MEDS ORDERED: VERAPAMIL 2.5 MG/ML 2 ML AMP ONE (08:52)
[2016-12-23] MEDS ORDERED: fentaNYL (PF) 50 MCG/ML 2 ML AMP IV ONE (09:02)
[2016-12-23] MEDS ORDERED: MIDAZOLAM 2 MG/2 ML VIAL IV ONE (09:02)
[2016-12-23] MEDS ORDERED: HEPARIN SODIUM 1,000 UN/ML (10ML VL) ONE (09:03)
[2016-12-23] MEDS ORDERED: LIDOCAINE 2% INJ 20 MG/ML SQ ONE (09:03)
[2016-12-23] MEDS: VERAPAMIL SYRINGE (5 MG/10 ML) INTRAARTER ONE ×2 (09:11→10:45)
[2016-12-23] MEDS ORDERED: HEPARIN SODIUM 1,000 UN/ML (10ML VL) IV ONE (09:12)
[2016-12-23] MEDS ORDERED: HYDROcodone/APAP 5-325MG 1 EACH TAB PO PRN (09:37)
[2016-12-23] MEDS ORDERED: RX INFO: IV CONTRAST WAS GIVEN 1 EACH MISC MISCELLANE PRN ×2 (09:37→10:46)
[2016-12-23] MEDS ORDERED: PSEUDOEPHEDRINE HCL PO PRN (09:39)
[2016-12-23] MEDS ORDERED: ALBUTEROL NEBULIZED 2.5 MG/3 ML INHALATION PRN (09:39)
[2016-12-23] MEDS ORDERED: IBUPROFEN 800 MG TAB PO PRN (09:39)
[2016-12-23] MEDS ORDERED: OXYMETAZOLINE 0.05% NASL SPRAY 15 ML EA NOSTRIL PRN (09:39)
[2016-12-23] MEDS ORDERED: IBUPROFEN PO PRN (09:39)
--- NOTE | 2016-12-23 09:55 | P.PCN ---
Date of Procedure: 12/23/16 Preoperative Diagnosis: Chest pain and positive stress test Postoperative Diagnosis: Diffuse coronary artery disease with the significant lesion in the circumflex Procedure(s) Performed: Left heart catheterization without left ventriculography Implants: Indications for Procedure: Operative Findings: Description of Procedure: HISTORY: This is a 56-year-old female with history of hypertension and chronic smoking who was admitted recently to the hospital with chest pain which appear to be atypical for angina. Her cardiac enzymes and EKGs were negative. Patient had a nuclear stress test as an outpatient which was reported as showing ischemia in the anteroapical segment. LV function was preserved. Patient is advised to have a cardiac catheterization for further evaluation. CONSENT:I have discussed the risks, benefits and alternative therapies for the above-mentioned procedure and for both sedation/analgesia as well as necessary blood product administration, if indicated, as they pertain to this patient. The patient has indicated understanding and acceptance of the risks and procedures discussed. CONSCIOUS SEDATION: Patient was given 1 mg of Versed and 5 g of fentanyl for sedation. The duration of the sedation was 29 minutes. PROCEDURE: Patient was brought to the lab in a fasting state. Patient was given some IV sedation. The right groin is infiltrated with lidocaine and right femoral artery was entered using Seldinger technique. A 6-Estonian catheter was left in place and selective coronary arteriography and left ventriculography was performed. Patient tolerated the procedure well. Femoral angiogram was performed and Angio-Seal was applied for hemostasis. No immediate complications were noted and patient was transferred to [facility] in a stable condition HEMODYNAMICS: The aortic pressure is 123/84. Left ventricular end-diastolic pressure is 12-15. There was no gradient across the aortic valve SELECTIVE CORONARY ARTERIOGRAPHY: LEFT MAIN: This is normal length and patent THE LEFT ANTERIOR DESCENDING CORONARY ARTERY: . This is a good caliber vessel. It becomes smaller after giving the first diagonal branch which is a large caliber vessel. There is about 50-60% lesion in the mid LAD. Rest of the vessel appears to be relatively small, but reaches the apex. THE LEFT CIRCUMFLEX AND IS CORONARY ARTERY: This is a good caliber vessel which has about 70% eccentric lesion in the proximal portion. However, it has 2 90 bends prior to the lesion beyond the lesion the vessel appears to be free of occlusive disease and gives rise to small to moderate caliber OM branch. THE RIGHT CORONARY ARTERY: This is a good caliber vessel and dominant. It has diffuse plaque with areas of about 30-40% stenosis but no significant focal lesion. LEFT VENTRICULOGRAPHY: This was not performed FINAL IMPRESSION: Diffuse coronary artery disease with a critical lesion in the proximal circumflex and intermediate lesion in the mid LAD. PLAN: Dr. MARCO Muro reviewed the films and proceeding to stent the circumflex. He may perform FFR of the LAD to establish the significance of the lesion. PROGNOSIS: Fair.
[2016-12-23] MEDS ORDERED: BIVALIRUDIN BOLUS 250 MG/50 ML IV ONE ×2 (09:58)
[2016-12-23] MEDS ORDERED: BIVALIRUDIN 250 MG in SODIUM CHLORIDE 0.9% 50 ML IV ONE (09:59)
[2016-12-23] MEDS: NITROGLYCERIN 1000MCG/10ML SYRINGE INTRACORON ONE ×2 (10:20→10:37)
[2016-12-23] MEDS ORDERED: ADENOSINE 90 MG in SODIUM CHLORIDE 0.9% 60 ML IVP ONE (10:35)
[2016-12-23] MEDS ORDERED: CLOPIDOGREL 75 MG TAB ONE ×2 (10:43→10:44)
[2016-12-23] MEDS ORDERED: MAG HYDROX/AL HYDROX/SIMETH 30 ML CUP PO PRN (10:46)
[2016-12-23] MEDS ORDERED: ATROPINE SULFATE 0.1 MG/ML 10ML SYRINGE IV PRN (10:46)
[2016-12-23] MEDS ORDERED: ZOLPIDEM 5 MG TAB PO PRN (10:46)
[2016-12-23] MEDS ORDERED: NITROGLYCERIN SL TABS 0.4 MG TAB SUBLINGUAL PRN (10:46)
[2016-12-23] MEDS ORDERED: CLOPIDOGREL 75 MG TAB PO ONE (10:47)
[2016-12-23 11:20] VITALS: RESP 16; TEMP 96.4
[2016-12-23] MEDS: SODIUM CHLORIDE 0.9% 1,000 ML IV SCH ×2 (11:31→23:13)
[2016-12-23] MEDS: METOPROLOL TARTRATE 25 MG TAB PO SCH (19:56)
[2016-12-23] MEDS ORDERED: amLODIPine 5 MG TAB PO SCH (21:00)
[2016-12-23] MEDS ORDERED: ATORVASTATIN 80 MG TAB PO SCH (21:00)
[2016-12-24 06:40] LABS: Basophils # (A) 0.1 k/uL (0-0.2); Basophils % (A) 1 %; CHCM 34.2; Eosinophils # (A) 0.5 k/uL (0-0.7); Eosinophils % (A) 4 %; HCT 43.1 % (34.0-46.0); HDW 2.29; HGB 14.8 gm/dL (11.4-16.0); Luc # (Auto) 0.17; Luc % (Auto) 1; Lymphocytes # (A) 1.4 k/uL (1.0-4.8); Lymphocytes % (A) 12 %; MCH 32.3 pg (25.0-35.0); MCHC 34.3 g/dL (31.0-37.0); MCV 94.1 fL (80.0-100.0); Mean Platelet Volume 7.1; Monocytes # (A) 0.6 k/uL (0-1.0); Monocytes % (A) 5 %; Neutrophils # (A) 9.4 k/uL (1.3-7.7); Neutrophils % (A) 77 %; RBC 4.58 m/uL (3.80-5.40); RDW 14.4 % (11.5-15.5); WBC 12.2 k/uL (3.8-10.6); WBC (Perox) 11.89
[2016-12-24 06:47] LABS: Anion Gap 10 mmol/L; Blood Urea Nitrogen 11 mg/dL (7-17); Carbon Dioxide 24 mmol/L (22-30); Chloride 106 mmol/L (98-107); Glucose 99 mg/dL (74-99); Non-African American GFR(MDRD) >60 (>60 ml/min/1.73 sqM); Potassium 4.4 mmol/L (3.5-5.1); Sodium 140 mmol/L (137-145)
[2016-12-24 08:41] VITALS: BP 115/64; PULSE 74
[2016-12-24] MEDS: METOPROLOL TARTRATE 25 MG TAB PO SCH (08:42)
--- NOTE | 2016-12-24 08:45 | PTCA ---
DATE OF SERVICE: 12/23/2016 PROCEDURE: 1. PTCA and stenting of proximal calcified torturous left circumflex coronary artery. 2. Fractional flow reserve assessment of mid LAD lesion. PERFORMED BY: Dr. Aubrie Muro. CLINICAL INFORMATION: Mrs. Tere Ta was brought in by Dr. Damon for elective cardiac catheterization because of an abnormal stress test. She was advised cardiac cath. Study revealed a 40% to 50% lesion in the mid LAD and a 70% lesion in the proximal circumflex located after a very tortuous twists and turns in the artery and also a calcification. Risks, benefits,options, rationale were explained to the patient. I explained to her that the lesion was very tight in circumflex and I would also assess the status of the LAD lesion by FFR and then proceeded to perform the procedure from the right radial approach. The sheath was already in place. PROCEDURE NOTE: The existing 6 Greenlandic introducer in the right radial artery was used to perform procedure. I used a Voda 3.5 guide catheter to cannulate the left coronary artery. A Whisper wire was used to cross the lesion. The wire was kept distally in the small branch of the circumflex. Predilatation was performed using NC Trek balloon of 12 mm length and 2.5 caliber. I then deployed a 2.5 caliber 12 mm long Xience stent. Just prior to the deployment of the stent after the balloon inflation, the proximal circumflex has a subtotal occlusion. However, I went there and deployed the Xience stent and then proximal to it I deployed an 8 mm long ( ) stent of 2.5 caliber. The patient had transient chest pain and after the second stent deployment the vessel opened up very nicely with excellent angiographic appearance and flow with a complete resolution of chest pain and EKG remained unremarkable. Excellent angiographic result was achieved after deploying 2 drug eluting stents in the proximal circumflex. The attention was then turned to the LAD lesion. Using the same guide catheter, I advanced a [employer] wire and kept the wire distal to the LAD lesion. Adenosine infusion was given and fractional flow reserve assessment was performed with ( ) per protocol with adenosine infusion. The FFR was 0.86 suggesting that the LAD lesion was not hemodynamically significant. Results were discussed with the patient. Results of the circumflex PTCA and stenting as well as the FFR findings were explained to the patient and family. The sheath was taken out and a TR band applied as per protocol. The patient received Angiomax bolus and infusion as per protocol. She also received 600 mg of Plavix. Moderate conscious sedation with Versed and Benadryl was given for a total duration of 45 minutes. The patient's oxygen saturation was monitored closely. The oxygen saturation of the fingers of the right had after TR band application was 94% Excellent angiographic result of the circumflex was achieved with drug eluting stent of 2.5 caliber, 8 mm long proximally and 12 mm long distally. The FFR in the mid LAD lesion was 0.86 suggesting that this was not hemodynamically significant. Results were discussed with the patient and family and she was sent to the room in stable condition. CHAU
--- NOTE | 2016-12-24 08:52 | MISC ---
December 23, 2016 Haleigh Armenta MD Re: Tere Cely Dear Dr. Armenta: Thank you for the opportunity to participate in the care of Mrs. Ta. I am pleased to report to you that her tortuous circumflex lesion was addressed with 2 drug eluting stents with excellent result. LAD lesion is not hemodynamically significant based on FFR. She can be discharged tomorrow if she remains stable. Thank you for your referral and please call for questions. With kindest regards. Sincerely yours, Aubrie Muro MD [facility]
[2016-12-24] MEDS ORDERED: LEVOTHYROXINE 100 MCG TAB PO SCH (09:00)
[2016-12-24] MEDS ORDERED: LOSARTAN 50 MG TAB PO SCH (09:00)
[2016-12-24] MEDS ORDERED: CLOPIDOGREL 75 MG TAB PO SCH (09:00)
[2016-12-24] MEDS ORDERED: ASPIRIN 81 MG CHEW PO SCH (09:00)
[2016-12-24] MEDS ORDERED: ASPIRIN 325 MG TAB PO SCH (09:00)
--- NOTE | 2016-12-24 09:05 | P.DS ---
Providers Date of admission: 12/23/2016 Attending physician: Suze Damon Consults: 12/23/16 10:47 Consult Physician Routine Consulting Provider: [facility] Consult Reason/Comments: Post Interventional patient Do you want consulting provider notified?: Already Contacted Primary care physician: Haleigh Armenta - Discharge Diagnosis(es) (1) Angina pectoris Current Visit: Yes Status: Acute (2) CAD (coronary artery disease) Current Visit: Yes Status: Acute (3) Hypertension Current Visit: No Status: Acute (4) Hypothyroidism Current Visit: No Status: Acute (5) Smoking Current Visit: No Status: Acute Hospital Course: A she was brought in because of chest pain and positive stress test to have outpatient cardiac catheterization. This revealed significant disease involving the circumflex and also moderate disease involving the mid LAD. Patient had stent placement of the circumflex. FFR of the LAD are suggestive of insignificant stenosis of the LAD. Patient was advised maximum medical therapy. Patient has remained stable overnight. Denies any chest pain or shortness of breath. Her puncture site in the right radial area, appears to be healing well without any hematoma or ecchymosis. Radial pulses well preserved. Patient is tolerating activity. She is being discharged home. She'll be on aspirin and Plavix. She is advised to discontinue Motrin ,Because of risk of bleeding. Rest of the medication to be Continued. Follow-up in the office in one week ., Plan - Discharge Summary New Discharge Prescriptions: New Albuterol Nebulized [Ventolin Nebulized] 2.5 mg INHALATION RT-Q6H PRN neb PRN Reason: Shortness Of Breath Aspirin 81 mg PO DAILY #90 Atorvastatin [Lipitor] 80 mg PO HS #90 tab Clopidogrel [Plavix] 75 mg PO DAILY #90 tab Levothyroxine Sodium [Synthroid] 100 mcg PO AC-BRKFST tab Losartan [Cozaar] 50 mg PO DAILY tab Nitroglycerin Sl Tabs [Nitrostat] 0.4 mg SUBLINGUAL Q5M PRN #25 tab PRN Reason: Chest Pain Oxymetazoline 0.05% Nasl Lebo [Afrin 0.05% Nasal Lebo] 1 spray EA NOSTRIL DAILY PRN spray PRN Reason: Allergy Symptoms Continue Albuterol Inhaler [Ventolin Hfa Inhaler] 2 puff INHALATION RT-Q6H PRN PRN Reason: Shortness Of Breath Assured Nasal Lebo 1 spray EA NOSTRIL DAILY PRN PRN Reason: Allergy Symptoms Aspirin 325 mg PO DAILY tab Metoprolol Tartrate [Lopressor] 25 mg PO BID tab Discontinued Ibuprofen [Motrin] 800 mg PO DAILY PRN PRN Reason: Pain Ibuprofen/Pseudoephedrine HCl [Advil Cold & Sinus Caplet] 2 tab PO DAILY PRN PRN Reason: Cold Symptoms Levothyroxine Sodium [Synthroid] 100 mcg PO DAILY #30 tab amLODIPine [Norvasc] 5 mg PO HS Discharge Medication List Albuterol Inhaler [Ventolin Hfa Inhaler] 2 puff INHALATION RT-Q6H PRN 10/02/16 [ History] Assured Nasal Lebo 1 spray EA NOSTRIL DAILY PRN 10/02/16 [History] Aspirin 325 mg PO DAILY tab 10/03/16 [Rx] Metoprolol Tartrate [Lopressor] 25 mg PO BID tab 10/03/16 [Rx] Albuterol Nebulized [Ventolin Nebulized] 2.5 mg INHALATION RT-Q6H PRN neb 12/24 [Rx] Aspirin 81 mg PO DAILY #90 12/24/16 [Rx] Atorvastatin [Lipitor] 80 mg PO HS #90 tab 12/24/16 [Rx] Clopidogrel [Plavix] 75 mg PO DAILY #90 tab 12/24/16 [Rx] Levothyroxine Sodium [Synthroid] 100 mcg PO AC-BRKFST tab 12/24/16 [Rx] Losartan [Cozaar] 50 mg PO DAILY tab 12/24/16 [Rx] Nitroglycerin Sl Tabs [Nitrostat] 0.4 mg SUBLINGUAL Q5M PRN #25 tab 12/24/16 [Rx ] Oxymetazoline 0.05% Nasl Lebo [Afrin 0.05% Nasal Lebo] 1 spray EA NOSTRIL DAILY PRN spray 12/24/16 [Rx] Follow up Appointment(s)/Referral(s): Suze Damon MD [STAFF PHYSICIAN] - 1 Week Discharge Disposition: HOME SELF-CARE
== END 2016-12-24 10:05 | disposition home or self-care (01) ==
LOC: CATHCVL 07:56 → 6SEL 10:40 → CATHCVL 12-24 10:05
PROVIDERS: ATTEND Internal Medicine Cardiovascular Disease
DX: I25.119 Atherosclerotic heart disease of native coronary artery with unspecified angina pectoris (principal); I25.84 Coronary atherosclerosis due to calcified coronary lesion; R94.39 Abnormal result of other cardiovascular function study; I10 Essential (primary) hypertension; E03.9 Hypothyroidism, unspecified; Z82.49 Family history of ischemic heart disease and other diseases of the circulatory system; F17.200 Nicotine dependence, unspecified, uncomplicated; Z79.82 Long term (current) use of aspirin; Z79.899 Other long term (current) drug therapy
CPT/HCPCS: 94760; 93571; 93458; 80048; 85025; 99152; 99153 ×6; C9600; C1769 ×3; C1887; C1894 ×2; C1725; C1874 ×2; J2001; J2250; J3010; J1644; J0583; J0153

== ENCOUNTER → 2020-01-01 | Outpatient (CLI) | payer BC ==
--- NOTE | 2020-01-01 15:06 | CT ---
EXAMINATION TYPE: CT orbits wo/w con DATE OF EXAM: 01/01/2020 COMPARISON: Correlation CT brain 10/02/2016 HISTORY: 59-year-old female E05.00 thyroid orbitopathy TECHNIQUE: Contiguous axial scanning of the orbits performed without and with IV Contrast, patient in jected with 100 mL of Isovue 300. Coronal reconstructions performed. CT DLP: 627.4 mGycm Automated exposure control for dose reduction was used. FINDINGS: There is bilateral proptosis, right greater than left. There is extrusion of the bilateral lacrimal g lands outside of the orbit. As compared to 10/02/2016, there has been progression in the thickening of the extraocular musculature now with greater thickening of the medial recti, continued thickening of the inferior recti, and new thickening of the right lateral rectus. Bilateral thickening of the superior rectus levator complex. There is continued sparing of the tendinous orbital attachments. No intraconal abnormality identified. Mild atherosclerotic changes within the carotid siphons. Visualized intracranial structures show no gross abnormality. Mild to moderate mucosal thickening ethmoid air cells. Trapped fluid in the inferior right mastoid air cells. Globes appear intact. IMPRESSION: 1. PROGRESSION IN THE THYROID ORBITOPATHY COMPARED TO 2016 WITH GREATER DEGREE OF PROPTOSIS AND TH ICKENING OF THE EXTRAOCULAR MUSCULATURE, RIGHT GREATER THAN LEFT. 2. MODERATE CHRONIC ETHMOID SINUS DISEASE. 3. SOME TRAPPED FLUID IN THE RIGHT MASTOID AIR CELLS. CORRELATE FOR ANY MASTOID PAIN TO EXCLUDE MASTO IDITIS.
== END | disposition home or self-care (01) ==
LOC: RADCTMAIN 14:03
PROVIDERS: ATTEND Ophthalmology
DX: H05.20 Unspecified exophthalmos (principal); J32.2 Chronic ethmoidal sinusitis; E05.00 Thyrotoxicosis with diffuse goiter without thyrotoxic crisis or storm
CPT/HCPCS: 70482; Q9967

== ENCOUNTER → 2020-02-10 | Outpatient (CLI) | payer BC ==
[2020-02-10 14:34] LABS: Basophils # (A) 0.2 k/uL (0-0.2); Basophils % (A) 2 %; Eosinophils # (A) 0.5 k/uL (0-0.7); Eosinophils % (A) 5 %; HCT 50.8 % (34.0-46.0); HGB 16.5 gm/dL (11.4-16.0); Lymphocytes # (A) 1.9 k/uL (1.0-4.8); Lymphocytes % (A) 22 %; MCH 32.7 pg (25.0-35.0); MCHC 32.5 g/dL (31.0-37.0); MCV 100.6 fL (80.0-100.0); Mean Platelet Volume 9.2; Monocytes # (A) 0.4 k/uL (0-1.0); Monocytes % (A) 5 %; Neutrophils # (A) 5.7 k/uL (1.3-7.7); Neutrophils % (A) 64 %; Platelet Count 310 k/uL (150-450); RBC 5.05 m/uL (3.80-5.40); RDW 12.6 % (11.5-15.5); WBC 8.9 k/uL (3.8-10.6)
[2020-02-10 22:53] LABS: African American GFR (CKD) 94.2 (60.0-200.0); Albumin 4.7 g/dL (3.80-4.90); Albumin/Globulin Ratio 1.47 (1.60-3.17); Anion Gap 5.9 mmol/L (4.00-12.00); BUN/Creat Ratio 12.5 Ratio (12.00-20.00); Calcium 9.9 mg/dL (8.7-10.3); Carbon Dioxide 27.1 mmol/L (21.6-31.8); Globulin 3.2 g/dL (1.6-3.3); Non-African American GFR(CKD) 81.3 (60.0-200.0); Potassium 4.8 mmol/L (3.5-5.5); Total Bilirubin 0.5 mg/dL (0.2-1.2); Total Protein 7.9 g/dL (6.2-8.2)
[2020-02-10 23:01] LABS: T4, Free (Free Thyroxine) 1.2 ng/dL (0.80-1.80)
[2020-02-10 23:56] LABS: Hemoglobin A1C 5.7 % (4.0-6.0)
[2020-02-12 19:34] LABS: Thyroid Stim Immun Quant >40.00 IU/L (<0.10)
[2020-02-14 03:28] LABS: Selenium 140 mcg/L (63-160)
== END | disposition home or self-care (01) ==
LOC: LABMAIN 12:06
PROVIDERS: ATTEND Ophthalmology Ophthalmic Plastic and Reconstructive Surgery
DX: E05.00 Thyrotoxicosis with diffuse goiter without thyrotoxic crisis or storm (principal); H53.2 Diplopia; H05.20 Unspecified exophthalmos; E55.9 Vitamin D deficiency, unspecified; H02.539 Eyelid retraction unspecified eye, unspecified lid
CPT/HCPCS: 36415; 80053; 82306; 83036; 84255; 84439; 84443; 84445; 84481; 85025; 86376

== ENCOUNTER → 2020-02-16 | Outpatient (CLI) | payer BC ==
--- NOTE | 2020-02-16 13:02 | CT ---
EXAMINATION TYPE: CT facial bones wo con DATE OF EXAM: 02/16/2020 COMPARISON: CT orbits 01/01/2020 HISTORY: Thyrotoxicosis with diffuse goiter, orbital pressure CT DLP: 654.4 mGycm Automated exposure control for dose reduction was used. TECHNIQUE: CT scan of the sinuses is performed without contrast, axial images are obtained, coronal r eformatted images are also reviewed. FINDINGS: There is bilateral proptosis, right greater than left, which is not significantly changed versus 12/31 CT comparison. The globes are grossly symmetric. Redemonstrated extrusion of the bilateral lacr imal glands outside of the orbits. The increased retro-ocular orbital fat volume and diffuse thickeni ng of the extraocular muscle bellies bilaterally is also not significantly changed versus 01/01/2020. Sparing of the tendinous insertions consistent with thyroid associated orbitopathy. There is symmetri c and unremarkable unenhanced appearance of the superior ophthalmic veins. Bilateral maxillary antrostomy postsurgical changes. The maxillary and sphenoid sinus ostia are paten t. The frontoethmoidal recesses are patent. There is mucosal thickening of the right maxillary sinus and ethmoid air cells. There is partial opacification of the mastoid air cells, right greater than left. IMPRESSION: 1. Thyroid orbitopathy proptosis and extraocular muscle thickening unchanged versus 01/01/2020 compari son. 2. Paranasal sinus disease. 3. Redemonstrated partial opacification of the mastoid air cells. Correlate for possibility of mastoi ditis.
== END | disposition home or self-care (01) ==
LOC: RADCTMAIN 09:03
PROVIDERS: ATTEND Ophthalmology Ophthalmic Plastic and Reconstructive Surgery
DX: E05.00 Thyrotoxicosis with diffuse goiter without thyrotoxic crisis or storm (principal); E55.9 Vitamin D deficiency, unspecified
CPT/HCPCS: 70486

== ENCOUNTER 2021-04-03 16:15 | Inpatient (IN) | payer BC, MEDICARE ==
[2021-04-03 17:07] LABS: Glucose,Whole Blood 119 mg/dL (75-99)
[2021-04-03 17:16] LABS: Basophils # (A) 0.1 k/uL (0-0.2); Basophils % (A) 1 %; Eosinophils # (A) 0.5 k/uL (0-0.7); Eosinophils % (A) 6 %; HCT 50.1 % (34.0-46.0); HGB 17.3 gm/dL (11.4-16.0); Lymphocytes # (A) 1.4 k/uL (1.0-4.8); Lymphocytes % (A) 17 %; MCHC 34.5 g/dL (31.0-37.0); MCV 98.6 fL (80.0-100.0); Mean Platelet Volume 7.4; Monocytes # (A) 0.4 k/uL (0-1.0); Monocytes % (A) 5 %; Neutrophils # (A) 5.8 k/uL (1.3-7.7); Neutrophils % (A) 70 %; Platelet Count 293 k/uL (150-450); RBC 5.09 m/uL (3.80-5.40); RDW 12.3 % (11.5-15.5); WBC 8.3 k/uL (3.8-10.6)
[2021-04-03 17:35] LABS: ALT 23 U/L (4-34); AST 29 U/L (14-36); African American GFR (CKD) >90 (>60 ml/min/1.73 sqM); Albumin 4.8 g/dL (3.5-5.0); Alkaline Phosphatase 118 U/L (38-126); Anion Gap 10 mmol/L; Blood Urea Nitrogen 11 mg/dL (7-17); Calcium 10.4 mg/dL (8.4-10.2); Carbon Dioxide 23 mmol/L (22-30); Chloride 101 mmol/L (98-107); Glucose 115 mg/dL (74-99); Magnesium 1.9 mg/dL (1.6-2.3); Non-African American GFR(CKD) >90 (>60 ml/min/1.73 sqM); Potassium 4.4 mmol/L (3.5-5.1); Sodium 134 mmol/L (137-145); Total Bilirubin 0.6 mg/dL (0.2-1.3); Total Protein 8.4 g/dL (6.3-8.2)
[2021-04-03 17:40] LABS: INR 1.1 (<1.2); Partial Thromboplastin Time 25.4 sec (22.0-30.0); Prothrombin Time 11.6 sec (9.0-12.0)
--- NOTE | 2021-04-03 18:00 | XR ---
EXAMINATION TYPE: XR chest 2V DATE OF EXAM: 04/03/2021 COMPARISON: Chest x-ray and CT 10/02/2016 HISTORY: Chest pain TECHNIQUE: Frontal and lateral views of the chest are obtained. FINDINGS: There is no focal air space opacity, pleural effusion, or pneumothorax seen. The cardiac silhouette size is within normal limits. The aorta is dense. There is interval improved visualization of the lateral aspect of left hemidiaphragm. Interstitium is increased. The osseous structures are intact. IMPRESSION: No acute cardiopulmonary process. Interval improved aeration. There is underlying emphysema. Possible interstitial lung disease. Correl ate for pulmonary artery hypertension.
[2021-04-03] MEDS ORDERED: NITROGLYCERIN SL TABS 0.4 MG TAB SUBLINGUAL PRN (18:06)
[2021-04-03] MEDS ORDERED: HEPARIN SODIUM 1,000 UN/ML (10ML VL) IV ONE (18:06)
--- NOTE | 2021-04-03 18:06 | ED ---
General Adult HPI - General Chief complaint: Chest Pain Stated complaint: Heavy Chest/Weakness Time Seen by Provider: 04/03/21 16:30 Source: patient, RN notes reviewed, old records reviewed Mode of arrival: ambulatory Limitations: no limitations - History of Present Illness Initial comments: This a 60-year-old female presents emergency Department with a past medical history significant for smoking high blood pressure and a previous history of coronary artery disease with 2 stents placed. Patient comes in today complaining of chest pain that started this morning radiated to her jaw she wasn't short of breath she had no diaphoretic episode no nausea. Patient states the pain in her chest did feel similar to the pain she had when she had her previous stents. Patient states the pain is considerably better at this time. Patient denies any recent fever chills or cough. Patient denies any lightheadedness or dizziness. Patient denies any abdominal pain patient denies nausea vomiting or diarrhea. Patient denies any swelling to legs or calf te nderness. - Related Data Home Medications Medication Instructions Recorded Confirmed Aspirin 81 mg PO HS 07/19/19 04/03/21 amLODIPine [Norvasc] 2.5 mg PO HS 07/19/19 04/03/21 Omeprazole [PriLOSEC] 40 mg PO HS 02/15/20 04/03/21 Cholecalciferol [Vitamin D3 (25 25 mcg PO HS 04/03/21 04/03/21 Mcg = 1000 Iu)] Hydroxychloroquine Sulfate 200 mg PO HS 04/03/21 04/03/21 [Plaquenil] Turmeric Root Extract [Turmeric] 500 mg PO HS 04/03/21 04/03/21 Previous Rx's Medication Instructions Recorded Levothyroxine Sodium [Synthroid] 100 mcg PO AC-BRKFST tab 12/24/16 Nitroglycerin Sl Tabs [Nitrostat] 0.4 mg SUBLINGUAL Q5M PRN #25 tab 12/24/16 Allergies Allergy/AdvReac Type Severity Reaction Status Date / Time adhesive tape AdvReac Rash/Hives Verified 04/03/21 16:33 diphenhydramine AdvReac dizzy,shaky, Verified 04/03/21 16:33 [From Benadryl] overtired Review of Systems ROS Statement: Those systems with pertinent positive or pertinent negative responses have been documented in the HPI. ROS Other: All systems not noted in ROS Statement are negative. Past Medical History Past Medical History: Cancer, Chest Pain / Angina, COPD, Hypertension, Osteoarthritis (OA), Thyroid Disorder Additional Past Medical History / Comment(s): skin CA,grave's disease,sinus problems. THYROID EYE DISEASE. History of Any Multi-Drug Resistant Organisms: None Reported Past Surgical History: Section, Heart Catheterization With Stent Additional Past Surgical History / Comment(s): C-sec X2, uterine ablation, eye surgery from graves Dx, sinus surgery, skin ca removed from breast,heart stents x2 Past Anesthesia/Blood Transfusion Reactions: No Reported Reaction Date of Last Stent Placement:: Past Psychological History: No Psychological Hx Reported Smoking Status: Current every day smoker Past Alcohol Use History: Daily Past Drug Use History: None Reported - Past Family History Mother Family Medical History: Coronary Artery Disease (CAD), CVA/TIA, Diabetes Mellitus, Hypertension Father Family Medical History: Diabetes Mellitus, Rheumatoid Arthritis (RA) Additional Family Medical History / Comment(s): pericardial fluid removal x2 Brother(s) Family Medical History: Diabetes Mellitus General Exam - General Exam Comments Initial Comments: GENERAL: Patient is well-developed and well-nourished. Patient is nontoxic and well- hydrated and is in mild distress. ENT: Neck is soft and supple. No significant lymphadenopathy is noted. Oropharynx is clear. Moist mucous membranes. Neck has full range of motion without eliciting any pain. EYES: The sclera were anicteric and conjunctiva were pink and moist. Extraocular movements were intact and pupils were equal round and reactive to light. E yelids were unremarkable. PULMONARY: Unlabored respirations. Good breath sounds bilaterally. No audible rales rhonchi or wheezing was noted. CARDIOVASCULAR: There is a regular rate and rhythm without any murmurs gallops or rubs. ABDOMEN: Soft and nontender with normal bowel sounds. No palpable organomegaly was noted. There is no palpable pulsatile mass. SKIN: Skin is clear with no lesions or rashes and otherwise unremarkable. NEUROLOGIC: Patient is alert and oriented x3. Cranial nerves II through XII are grossly intact. Motor and sensory are also intact. Normal speech, volume and content. Symmetrical smile. Cerebellar exam grossly intact. MUSCULOSKELETAL: Normal extremities with adequate strength and full range of motion. No lower extremity swelling or edema. No calf tenderness. LYMPHATICS: No significant lymphadenopathy is noted PSYCHIATRIC: Normal psychiatric evaluation. Limitations: no limitations Course Vital Signs 04/03/21 16:29 Temperature 98.4 F Pulse Rate 75 Respiratory 17 Rate Blood Pressure 156/96 O2 Sat by Pulse 96 Oximetry Medical Decision Making - Medical Decision Making Chest x-ray shows no acute abnormality. EKG shows normal sinus rhythm at 66 bpm [place] interval is 154 QRS is 84 Q-T intervals 428 QTC is 448. Patient's EKG shows no ST segment elevation or depression. I spoke with some physicians agreed to admit the patient admitted the patient I consult cardiology. I started the patient on heparin I continued heparin and aspirin and Nitropaste on the floor. Repeat EKG shows normal sinus rhythm at 69 bpm AZ interval 244 QRS is 84 QT interval 420 QTC is 450. Patient's EKG shows no ST segment elevation or depression. - Lab Data Result diagrams: 04/03/21 17:09 04/03/21 17:09 Lab Results 04/03/21 04/03/21 04/03/21 Range/Units 17:03 17:09 17:09 WBC 8.3 (3.8-10.6) k/uL RBC 5.09 (3.80-5.40) m/uL Hgb 17.3 H (11.4-16.0) gm/dL Hct 50.1 H (34.0-46.0) % MCV 98.6 (80.0-100.0) fL MCH 34.0 (25.0-35.0) pg MCHC 34.5 (31.0-37.0) g/dL RDW 12.3 (11.5-15.5) % Plt Count 293 (150-450) k/uL MPV 7.4 Neutrophils % 70 % Lymphocytes % 17 % Monocytes % 5 % Eosinophils % 6 % Basophils % 1 % Neutrophils # 5.8 (1.3-7.7) k/uL Lymphocytes # 1.4 (1.0-4.8) k/uL Monocytes # 0.4 (0-1.0) k/uL Eosinophils # 0.5 (0-0.7) k/uL Basophils # 0.1 (0-0.2) k/uL PT 11.6 (9.0-12.0) sec INR 1.1 (<1.2) APTT 25.4 (22.0-30.0) sec Sodium (137-145) mmol/L Potassium (3.5-5.1) mmol/L Chloride (98-107) mmol/L Carbon Dioxide (22-30) mmol/L Anion Gap mmol/L BUN (7-17) mg/dL Creatinine (0.52-1.04) mg/dL Est GFR (CKD-EPI)AfAm (>60 ml/min/1.73 sqM) Est GFR (CKD-EPI)NonAf (>60 ml/min/1.73 sqM) Glucose (74-99) mg/dL POC Glucose (mg/dL) 119 H (75-99) mg/dL POC Glu [employer] Account Manager ID [facility] Calcium (8.4-10.2) mg/dL Magnesium (1.6-2.3) mg/dL Total Bilirubin (0.2-1.3) mg/dL AST (14-36) U/L ALT (4-34) U/L Alkaline Phosphatase (38-126) U/L Troponin I (0.000-0.034) ng/mL Total Protein (6.3-8.2) g/dL Albumin (3.5-5.0) g/dL 04/03/21 04/03/21 Range/Units 17:09 17:09 WBC (3.8-10.6) k/uL RBC (3.80-5.40) m/uL Hgb (11.4-16.0) gm/dL Hct (34.0-46.0) % MCV (80.0-100.0) fL MCH (25.0-35.0) pg MCHC (31.0-37.0) g/dL RDW (11.5-15.5) % Plt Count (150-450) k/uL MPV Neutrophils % % Lymphocytes % % Monocytes % % Eosinophils % % Basophils % % Neutrophils # (1.3-7.7) k/uL Lymphocytes # (1.0-4.8) k/uL Monocytes # (0-1.0) k/uL Eosinophils # (0-0.7) k/uL Basophils # (0-0.2) k/uL PT (9.0-12.0) sec INR (<1.2) APTT (22.0-30.0) sec Sodium 134 L (137-145) mmol/L Potassium 4.4 (3.5-5.1) mmol/L Chloride 101 (98-107) mmol/L Carbon Dioxide 23 (22-30) mmol/L Anion Gap 10 mmol/L BUN 11 (7-17) mg/dL Creatinine 0.56 (0.52-1.04) mg/dL Est GFR (CKD-EPI)AfAm >90 (>60 ml/min/1.73 sqM) Est GFR (CKD-EPI)NonAf >90 (>60 ml/min/1.73 sqM) Glucose 115 H (74-99) mg/dL POC Glucose (mg/dL) (75-99) mg/dL POC Glu [employer] Account Manager ID Calcium 10.4 H (8.4-10.2) mg/dL Magnesium 1.9 (1.6-2.3) mg/dL Total Bilirubin 0.6 (0.2-1.3) mg/dL AST 29 (14-36) U/L ALT 23 (4-34) U/L Alkaline Phosphatase 118 (38-126) U/L Troponin I 0.061 H* (0.000-0.034) ng/mL Total Protein 8.4 H (6.3-8.2) g/dL Albumin 4.8 (3.5-5.0) g/dL Critical Care Time Critical Care Time: Yes Total Critical Care Time: 35 Disposition Clinical Impression: Unstable angina pectoris, Elevated troponin Disposition: ADMITTED IP TO THIS [facility] Time of Disposition: 18:06
[2021-04-03] MEDS ORDERED: NITROGLYCERIN OINT 1 INCH/GM PACKET TOPICAL STA (18:13)
[2021-04-03] MEDS ORDERED: ASPIRIN 81 MG PO STA (18:13)
[2021-04-03] MEDS ORDERED: HEPARIN SOD,PORK IN 0.45% NACL 25,000 UNIT in 0.45% NACL 1 250ML.BAG IV SCH (18:15)
--- NOTE | 2021-04-03 21:18 | P.HPIM ---
History of Present Illness H&P Date: 04/03/21 The patient is a 60-year-old female with a PMH of coronary artery disease status post 2 stents, tobacco abuse, hypertension, hypothyroidism, history of Graves' disease status post thyroid ablation and residual exophthalmos, who presents to the emergency room with complaints of chest discomfort. The patient reports that she woke up this morning to go to the restroom and when she came back and about at 4:30 AM, she developed this heartburn-like sensation throughout chest. The discomfort was waxing and waning, 5 out of 10 at maximal intensity, with no alleviating or exacerbating features, not alleviated with sublingual nitro. She reported the pain was radiating up into her jaw which was what she experienced when she had her prior MD and 2 stents placed. The pain persisted throughout the day and she then decided to come to the emergency room. She reports that the pain resolved at around 6 PM tonight. She denied associated shortness of breath, nausea, vomiting, diaphoresis, or dizziness. She denied fever, chills, cough, abdominal pain, diarrhea. Reports compliance with her medications at home. She continues to smoke one pack of cigarettes daily. In the emergency room and EKG revealed normal sinus rhythm at [address]/T-wave changes noted as reviewed by me. Chest x-ray revealed underlying emphysema and possible interstitial lung disease along with pulmonary artery hypertension. Laboratory evaluation was remarkable for troponin I of 0.061. Patient was started on heparin infusion and is being admitted for non-ST elevation MD. Review of systems: Pertinent positives and negatives as discussed in HPI, a complete review of systems was performed and all other systems are negative. Physical examination: General: non toxic, no distress, appears at stated age, overweight Derm: no unusual rashes/lesions no unusual ecchymoses, warm, dry Head: atraumatic, normocephalic, symmetric Eyes: EOMI, no lid lag, anicteric sclera, pupils equal round reactive to light, bilateral proptosis noted ENT: Nose and ears atraumatic, no thrush, no pharyngeal erythema Neck: No thyromegaly, no cervical lymphadenopathy, trachea midline, supple Mouth: no lip lesion, mucus membranes moist Cardiovascular: S1S2 reg, no murmur, positive posterior tibial pulse bilateral, no edema, capillary refill less than 2 seconds Lungs: CTA bilateral, no rhonchi, no rales , no accessory muscle use Abdominal: soft, nontender to palpation, no guarding, no appreciable organomegaly, normal bowel sounds Ext: no gross muscle atrophy, muscle strength 5 out of 5 in all 4 extremities grossly, no contractures, Neuro: CN II-XI grossly intact, light touch intact all 4 extremities, finger to nose within normal limits, Psych: Alert, oriented, appropriate affect Assessment/plan Non-ST elevation MD -Continue with heparin infusion -Continue with aspirin -Cardiac monitoring -Trend troponin -Cardiology consulted -Strongly advised on importance of cessation from tobacco use Chronic conditions: Hypertension, hypothyroidism -Continue with home meds DVT prophylaxis -Heparin infusion The patient is admitted with an anticipated less than 2 midnight stay for evaluation of NSTEMI CODE STATUS: Full Code Discussed with:Patient Anticipated discharge date: in am Anticipated discharge place: Home Past Medical History Past Medical History: Cancer, Chest Pain / Angina, COPD, Hypertension, Osteoarthritis (OA), Thyroid Disorder Additional Past Medical History / Comment(s): skin CA,grave's disease,sinus problems. THYROID EYE DISEASE. History of Any Multi-Drug Resistant Organisms: None Reported Past Surgical History: Section, Heart Catheterization With Stent Additional Past Surgical History / Comment(s): C-sec X2, uterine ablation, eye surgery from graves Dx, sinus surgery, skin ca removed from breast,heart stents x2 Past Anesthesia/Blood Transfusion Reactions: No Reported Reaction Date of Last Stent Placement:: Past Psychological History: No Psychological Hx Reported Smoking Status: Current every day smoker Past Alcohol Use History: Daily Past Drug Use History: None Reported - Past Family History Mother Family Medical History: Coronary Artery Disease (CAD), CVA/TIA, Diabetes Mellitus, Hypertension Father Family Medical History: Diabetes Mellitus, Rheumatoid Arthritis (RA) Additional Family Medical History / Comment(s): pericardial fluid removal x2 Brother(s) Family Medical History: Diabetes Mellitus Medications and Allergies Home Medications Medication Instructions Recorded Confirmed Type Levothyroxine Sodium [Synthroid] 100 mcg PO AC-BRKFST tab 12/24/16 04/03/21 Rx Nitroglycerin Sl Tabs [Nitrostat] 0.4 mg SUBLINGUAL Q5M PRN #25 tab 12/24/16 04/03/21 Rx Aspirin 81 mg PO HS 07/19/19 04/03/21 History amLODIPine [Norvasc] 2.5 mg PO HS 07/19/19 04/03/21 History Omeprazole [PriLOSEC] 40 mg PO HS 02/15/20 04/03/21 History Cholecalciferol [Vitamin D3 (25 25 mcg PO HS 04/03/21 04/03/21 History Mcg = 1000 Iu)] Hydroxychloroquine Sulfate 200 mg PO HS 04/03/21 04/03/21 History [Plaquenil] Turmeric Root Extract [Turmeric] 500 mg PO HS 04/03/21 04/03/21 History Allergies Allergy/AdvReac Type Severity Reaction Status Date / Time adhesive tape AdvReac Rash/Hives Verified 04/03/21 16:33 diphenhydramine AdvReac dizzy,shaky, Verified 04/03/21 16:33 [From Benadryl] overtired Physical Exam Vitals: Vital Signs Temp Pulse Pulse Resp BP BP Pulse Ox 04/03/21 20:55 98.0 F 72 16 146/69 98 04/03/21 20:27 98.6 F 75 18 124/73 96 04/03/21 19:03 74 18 122/71 96 04/03/21 16:29 98.4 F 75 17 156/96 96 Intake and Output 04/03/21 04/03/21 04/03/21 06:59 14:59 22:59 Other: Weight 83.915 kg Results CBC & Chem 7: 04/03/21 17:09 04/03/21 17:09 Labs: Abnormal Lab Results - Last 24 Hours (Table) 04/03/21 04/03/21 04/03/21 Range/Units 17:03 17:09 17:09 Hgb 17.3 H (11.4-16.0) gm/dL Hct 50.1 H (34.0-46.0) % Sodium 134 L (137-145) mmol/L Glucose 115 H (74-99) mg/dL POC Glucose (mg/dL) 119 H (75-99) mg/dL Calcium 10.4 H (8.4-10.2) mg/dL Troponin I (0.000-0.034) ng/mL Total Protein 8.4 H (6.3-8.2) g/dL 04/03/21 04/03/21 Range/Units 17:09 18:34 Hgb (11.4-16.0) gm/dL Hct (34.0-46.0) % Sodium (137-145) mmol/L Glucose (74-99) mg/dL POC Glucose (mg/dL) (75-99) mg/dL Calcium (8.4-10.2) mg/dL Troponin I 0.061 H* 0.074 H* (0.000-0.034) ng/mL Total Protein (6.3-8.2) g/dL
[2021-04-03] MEDS: PANTOPRAZOLE 40 MG TABLET PO SCH (21:57)
[2021-04-03] MEDS: HYDROXYCHLOROQUINE SULFATE 200 MG TAB PO SCH (21:57)
[2021-04-03] MEDS: NITROGLYCERIN OINT 1 INCH/GM PACKET TOPICAL SCH (23:14)
[2021-04-03] MEDS ORDERED: ACETAMINOPHEN TAB 325 MG TAB PO PRN (23:24)
[2021-04-04] MEDS: LEVOTHYROXINE 100 MCG TAB PO SCH (05:38)
[2021-04-04] MEDS: NITROGLYCERIN OINT 1 INCH/GM PACKET TOPICAL SCH (05:39)
[2021-04-04 06:01] LABS: Glucose,Whole Blood 102 mg/dL (75-99)
[2021-04-04] MEDS ORDERED: ATORVASTATIN 80 MG TAB PO STA (07:42)
[2021-04-04] MEDS ORDERED: ALPRAZolam 0.25 MG TAB PO PRN (07:57)
[2021-04-04] MEDS ORDERED: ALPRAZolam 0.5 MG TAB PO PRN (07:57)
[2021-04-04] MEDS ORDERED: fentaNYL (PF) 50 MCG/ML 2 ML AMP ONE (08:34)
[2021-04-04] MEDS ORDERED: LIDOCAINE 1% INJ 10MG/ML (20 ML MDV) ONE (08:34)
[2021-04-04] MEDS ORDERED: IV FLUID CONTINUATION 950 ML IV ONE ×2 (08:44)
[2021-04-04] MEDS ORDERED: VERAPAMIL 2.5 MG/ML 2 ML AMP ONE (08:51)
[2021-04-04] MEDS ORDERED: ASPIRIN 325 MG TAB PO SCH (09:00)
[2021-04-04] MEDS ORDERED: fentaNYL (PF) 50 MCG/ML 2 ML AMP IVP ONE (09:08)
[2021-04-04] MEDS ORDERED: HEPARIN SODIUM 1,000 UN/ML (10ML VL) ONE (09:08)
[2021-04-04] MEDS: MIDAZOLAM 2 MG/2 ML VIAL IVP ONE ×2 (09:08→09:46)
[2021-04-04] MEDS ORDERED: LIDOCAINE 1% INJ 10MG/ML (20 ML MDV) SQ ONE (09:10)
[2021-04-04] MEDS ORDERED: VERAPAMIL SYRINGE (5 MG/10 ML) INTRAARTER ONE (09:12)
[2021-04-04] MEDS: HEPARIN SODIUM 1,000 UN/ML (10ML VL) IVP ONE ×2 (09:13→09:42)
--- NOTE | 2021-04-04 09:44 | P.CARDCATH ---
Date of Procedure: 04/04/21 Postoperative Diagnosis: unstable angina/non-STEMI Procedure(s) Performed: left heart catheterization without left ventriculography Description of Procedure: HISTORY: This is a 60-year-old female with history of ischemic heart disease with the previous stent placement of the circumflexis admitted to the hospital with unstable angina/non-STEMI. Patient is advised to have a cardiac catheterization for definitive diagnosis CONSENT:I have discussed the risks, benefits and alternative therapies for the above-mentioned procedure and for both sedation/analgesia as well as necessary blood product administration, if indicated, as they pertain to this patient. The patient has indicated understanding and acceptance of the risks and procedures discussed. PROCEDURE: Patient was brought to the lab in a fasting state. Patient was given some IV sedation. The right wrist is infiltrated with lidocaine and right radial artery was entered using Seldinger technique. A 6-Romanian catheter was left in place and and left heart catheterization with selective coronary arteriography was performed. Patient tolerated the procedure well. . Patient was found to have critical lesion in the RCA and also in-stent stenosis involving the circumflex. No immediate complications were noted . Patient went on to have stent placement by Dr. Anderson Conscious Sedation: Versed 1mg Fentanyl 50 g Duration 17minutes HEMODYNAMICS: The aortic pressure is about 130/70 .. The end-diastolic pressure is about 10. No gradient across the aortic valve SELECTIVE CORONARY ARTERIOGRAPHY: LEFT MAIN: Normal length and free of occlusive di sease THE LEFT ANTERIOR DESCENDING CORONARY ARTERY: This is a good caliber vessel giving rise to good-sized diagonal branch. There is intermittent disease involving the mid LAD which appears to be stable THE LEFT CIRCUMFLEX AND IS CORONARY ARTERY: There is in-stent stenosis with 80% narrowing in the proximal circumflex. The rest of the circumflex is free of occlusive disease THE RIGHT CORONARY ARTERY: Good caliber vessel with 99% stenosis in the midportion LEFT VENTRICULOGRAPHY: not performed FINAL IMPRESSION: critical lesion involving the mid to distal RCA, significant stenosis involving the proximal circumflex and intermediate disease involving the mid LAD PLAN: stent placement of the RCA and circumflex being done by Dr. Anderson PROGNOSIS: neyda
[2021-04-04] MEDS ORDERED: PRASUGREL 10 MG TAB ONE (09:57)
[2021-04-04] MEDS ORDERED: IOPAMIDOL-370 125ML BTL INJ ONE (10:00)
[2021-04-04] MEDS ORDERED: PRASUGREL 10 MG TAB PO ONE (10:00)
[2021-04-04] MEDS ORDERED: MORPHINE SULFATE 4 MG/ML SYRINGE IVP ONE (10:02)
[2021-04-04] MEDS ORDERED: MORPHINE SULFATE 4 MG/ML SYRINGE ONE (10:02)
[2021-04-04] MEDS ORDERED: MIDAZOLAM 2 MG/2 ML VIAL IVP ONE (10:10)
[2021-04-04] MEDS ORDERED: IOPAMIDOL-370 100ML BTL INJ ONE (10:24)
[2021-04-04] MEDS ORDERED: ZOLPIDEM 5 MG TAB PO PRN (10:50)
[2021-04-04] MEDS ORDERED: ATROPINE SULFATE 0.1 MG/ML 10ML SYRINGE IV PRN (10:50)
[2021-04-04] MEDS ORDERED: RX INFO: IV CONTRAST WAS GIVEN 1 EACH MISC MISCELLANE PRN (10:50)
[2021-04-04] MEDS ORDERED: MAG HYDROX/AL HYDROX/SIMETH 30 ML CUP PO PRN (10:50)
[2021-04-04] MEDS ORDERED: SODIUM CHLORIDE 0.9% 1,000 ML IV SCH (11:00)
[2021-04-04] MEDS: SODIUM CHLORIDE 0.9% 1,000 ML in EMPTY BAG 1 BAG IV SCH ×2 (11:03→20:25)
--- NOTE | 2021-04-04 11:43 | ECHOF ---
Referral Reason:LV function MEASUREMENTS -------- HEIGHT: 170.2 cm WEIGHT: 76.7 kg BP: IVSd: 1.4 cm (0.6 - 1.1) LVIDd: 3.8 cm (3.9 - 5.3) LVPWd: 1.3 cm (0.6 - 1.1) EDV(Teich): 60 ml IVSs: 1.7 cm LVIDs: 2.4 cm LVPWs: 2.3 cm %IVS Thck: 28 % ESV(Teich): 20 ml EF(Teich): 66 % %FS: 36 % SV(Teich): 40 ml LVOT Diam: 1.6 cm RVIDd: 2.2 cm (< 3.3) IVC: 13.57 mm LALs A4C: 5.0 cm LAAs A4C: 14.0 cm LAESV A-L A4C: 33 ml LAESV MOD A4C: 30 ml LALs A2C: 4.8 cm LAAs A2C: 16.3 cm LAESV A-L A2C: 47 ml LAESV MOD A2C: 46 ml LAESV(A-L): 41 ml LAESV Index (A-L): 21.68 ml/m Ao Diam: 3.4 cm (2.0 - 3.7) LA Diam: 3.1 cm (2.7 - 3.8) AV Cusp: 1.3 cm (1.5 - 2.6) EPSS: 1.7 cm MV E Elvis: 0.82 m/s MV DecT: 270 ms MV Dec Bremer: 3.0 m/s MV A Elvis: 0.95 m/s MV E/A Ratio: 0.86 MV PHT: 78 ms MR Vmax: 1.40 m/s MR maxP.80 mmHg LVOT Vmax: 0.99 m/s LVOT maxP.93 mmHg AV Vmax: 1.98 m/s AV maxP.72 mmHg OLAF Vmax, Pt: 1.0 cm AV Vmax: 2.11 m/s AV Vmean: 1.44 m/s AV maxP.82 mmHg AV meanP.39 mmHg AV Env.Ti: 323 ms AV VTI: 46.4 cm OLAF Vmax, Pt: 0.9 cm TR Vmax: 1.62 m/s TR maxP.43 mmHg RAP: 5.00 mmHg RVSP: 15.43 mmHg MV EF SLOPE: 53.53 mm/s (70 - 150) MV EXCURSION: 12.84 mm (> 18.000) FINDINGS -------- This was a technically good study. The left ventricular size is normal. There is mild concentric left ventricular hypertrophy. Overa ll left ventricular systolic function is low-normal with, an EF between 50 - 55 %. Normal LAP Grade 1 Diastolic Dysfunction. Basal inferolateral hypokinesis. The right ventricle is normal in size. The left atrial size is normal. Normal LA size by volume 22+/-6 ml/m2. The right atrial size is normal. Aortic valve is trileaflet and is mildly thickened. There is mild aortic stenosis present. Peak/m cammy gradient across the Aortic Valve is 17.82mmHg / 9.39mmHg. The mitral valve is normal. Mild mitral regurgitation is present. The tricuspid valve appears structurally normal. Mild tricuspid regurgitation present. Right vent ricular systolic pressure is normal at < 35 mmHg. There is no pulmonic regurgitation present. The aortic root size is normal. Normal inferior vena cava with normal inspiratory collapse consistent with estimated right atrial pre ssure of 5 mmHg. There is no pericardial effusion. CONCLUSIONS -------- 1. The left ventricular size is normal. 2. There is mild concentric left ventricular hypertrophy. 3. Overall left ventricular systolic function is low-normal with, an EF between 50 - 55 %. 4. Normal LAP Grade 1 Diastolic Dysfunction. 5. Basal inferolateral hypokinesis. 6. Aortic valve is trileaflet and is mildly thickened. 7. There is mild aortic stenosis present. 8. Peak/mean gradient across the Aortic Valve is 17.82mmHg / 9.39mmHg. 9. Mild mitral regurgitation is present. 10. Mild tricuspid regurgitation present. 11. There is no pericardial effusion. [employer]QU[employer] F[employer]OR [employer] WALL APPLIER: Lacey Ordaz RDCS
[2021-04-04 12:04] LABS: Chol/HDL Ratio 4.92 Ratio; HDL Cholesterol 48.2 mg/dL (40.00-60.00); LDL Cholesterol,Calculated 157.2 mg/dL (0.0-131.0); VLDL Calculation 31.6 mg/dL (5.00-40.00)
--- NOTE | 2021-04-04 12:04 | P.CRDCN ---
History of Present Illness Consult date: 04/04/21 Chief complaint: Chest pain History of present illness: This is a pleasant 60-year-old female patient with a past medical history significant for coronary artery disease where in 2017 she underwent stenting of the left circumflex and was found to have an intermediate disease involving the LAD which was treated medically as well as hypertension and dyslipidemia and smoking presented to the hospital complaining of chest discomfort. She was in her usual state of health yesterday when she was at home and started experiencing discomfort in the middle of the chest as a pressure on the chest was some radiation to the jaw. The chest discomfort wasn't associated with sweating. She stated that is similar to what she had in 2017 before the stent. Because of that she decided to come to the hospital. The EKG showed sinus rhythm with nonspecific changes. The blood work came in to be abnormal with abnormal troponin and consistent with acute coronary syndrome. The patient currently is chest pain-free. Currently she is on heparin. I had a long discussion with her regarding the next step and I advised the patient to undergo a heart catheterization to rule out severe underlying coronary artery disease. The patient follows with Dr. Damon as an outpatient. Past Medical History Past Medical History: Cancer, Chest Pain / Angina, COPD, Hypertension, Osteoarthritis (OA), Thyroid Disorder Additional Past Medical History / Comment(s): skin CA,grave's disease,sinus pr oblems. THYROID EYE DISEASE. History of Any Multi-Drug Resistant Organisms: None Reported Past Surgical History: Section, Heart Catheterization With Stent Additional Past Surgical History / Comment(s): C-sec X2, uterine ablation, eye surgery from graves Dx, sinus surgery, skin ca removed from breast,heart stents x2 Past Anesthesia/Blood Transfusion Reactions: No Reported Reaction Date of Last Stent Placement:: Past Psychological History: No Psychological Hx Reported Smoking Status: Current every day smoker Past Alcohol Use History: Daily Past Drug Use History: None Reported - Past Family History Mother Family Medical History: Coronary Artery Disease (CAD), CVA/TIA, Diabetes Mellitus, Hypertension Father Family Medical History: Diabetes Mellitus, Rheumatoid Arthritis (RA) Additional Family Medical History / Comment(s): pericardial fluid removal x2 Brother(s) Family Medical History: Diabetes Mellitus Medications and Allergies Home Medications Medication Instructions Recorded Confirmed Type Levothyroxine Sodium [Synthroid] 100 mcg PO AC-BRKFST tab 12/24/16 04/03/21 Rx Nitroglycerin Sl Tabs [Nitrostat] 0.4 mg SUBLINGUAL Q5M PRN #25 tab 12/24/16 Rx Aspirin 81 mg PO HS 07/19/19 04/03/21 History amLODIPine [Norvasc] 2.5 mg PO HS 07/19/19 04/03/21 History Omeprazole [PriLOSEC] 40 mg PO HS 02/15/20 04/03/21 History Cholecalciferol [Vitamin D3 (25 25 mcg PO HS 04/03/21 04/03/21 History Mcg = 1000 Iu)] Hydroxychloroquine Sulfate 200 mg PO HS 04/03/21 04/03/21 History [Plaquenil] Turmeric Root Extract [Turmeric] 500 mg PO HS 04/03/21 04/03/21 History Allergies Allergy/AdvReac Type Severity Reaction Status Date / Time adhesive tape AdvReac Rash/Hives Verified 04/03/21 16:33 diphenhydramine AdvReac dizzy,shaky, Verified 04/03/21 16:33 [From Benadryl] overtired Physical Exam Vitals: Vital Signs Temp Pulse Pulse Resp BP BP Pulse Ox 04/04/21 07:56 98.1 F 66 18 131/68 95 04/04/21 03:23 98.3 F 61 16 99/52 95 04/04/21 01:55 18 04/03/21 23:44 98.2 F 79 18 118/67 97 04/03/21 20:55 98.0 F 72 16 146/69 98 04/03/21 20:27 98.6 F 75 18 124/73 96 04/03/21 20:00 16 04/03/21 19:03 74 18 122/71 96 04/03/21 16:29 98.4 F 75 17 156/96 96 Intake and Output 04/03/21 04/04/21 04/04/21 22:59 06:59 14:59 Intake Total 73.833 100 Balance 73.833 100 Intake: IV 100 Intake, IV Titration 73.833 Amount Heparin Sod,Pork in 0.45% 73.833 NaCl 25,000 unit In 0.45 % NaCl 1 250ml.bag @ 11. 917 UNITS/KG/HR 10 mls/hr IV .Q24H [facility] Rx#: [id number] Other: Weight 83.915 kg 77.1 kg - Constitutional General appearance: no acute distress - Respiratory Respiratory: bilateral: CTA - Cardiovascular Rhythm: regular Heart sounds: normal: S1, S2 Results 04/03/21 17:09 04/03/21 17:09 Cardiac Enzymes 04/03/21 04/03/21 04/03/21 Range/Units 17:09 17:09 18:34 AST 29 (14-36) U/L Troponin I 0.061 H* 0.074 H* (0.000-0.034) ng/mL 04/03/21 Range/Units 21:30 AST (14-36) U/L Troponin I 0.083 H* (0.000-0.034) ng/mL Coagulation 04/03/21 04/04/21 04/04/21 Range/Units 17:09 00:31 08:04 PT 11.6 (9.0-12.0) sec APTT 25.4 36.0 H 44.1 H (22.0-30.0) sec CBC 04/03/21 Range/Units 17:09 WBC 8.3 (3.8-10.6) k/uL RBC 5.09 (3.80-5.40) m/uL Hgb 17.3 H (11.4-16.0) gm/dL Hct 50.1 H (34.0-46.0) % Plt Count 293 (150-450) k/uL Comprehensive Metabolic Panel 04/03/21 Range/Units 17:09 Sodium 134 L (137-145) mmol/L Potassium 4.4 (3.5-5.1) mmol/L Chloride 101 (98-107) mmol/L Carbon Dioxide 23 (22-30) mmol/L BUN 11 (7-17) mg/dL Creatinine 0.56 (0.52-1.04) mg/dL Glucose 115 H (74-99) mg/dL Calcium 10.4 H (8.4-10.2) mg/dL AST 29 (14-36) U/L ALT 23 (4-34) U/L Alkaline Phosphatase 118 (38-126) U/L Total Protein 8.4 H (6.3-8.2) g/dL Albumin 4.8 (3.5-5.0) g/dL Current Medications Generic Name Dose Route Start Last Admin Trade Name Freq PRN Reason Stop Dose Admin Acetaminophen 650 mg 04/03/21 23:24 04/03/21 23:35 Acetaminophen Tab 325 Mg Tab PO 650 mg Q6HR PRN Administration Fever and/ or Pain Al Hydroxide/Mg Hydroxide 30 ml 04/04/21 10:50 Mag Hydrox/Al Hydrox/Simeth 30 Ml Cup PO Q4HR PRN Heartburn Alprazolam 0.25 mg 04/04/21 07:57 Alprazolam 0.25 Mg Tab PO Q6HR PRN Mild Anxiety Alprazolam 0.5 mg 04/04/21 07:57 Alprazolam 0.5 Mg Tab PO Q6HR PRN Moderate Anxiety Amlodipine Besylate 2.5 mg 04/04/21 21:00 Amlodipine 2.5 Mg Tab PO HS ROMARIO Aspirin 81 mg 04/05/21 09:00 Aspirin 81 Mg PO DAILY [facility] Atorvastatin Calcium 80 mg 04/04/21 21:00 Atorvastatin 80 Mg Tab PO HS [facility]AR[facility] Atropine Sulfate 0.5 mg 04/04/21 10:50 Atropine Sulfate 0.1 Mg/Ml 10ml Syringe IV ONCE PRN Symptomatic Bradycardia Cholecalciferol 25 mcg 04/04/21 21:00 Cholecalciferol 25 Mcg (1000 Iu) Tablet PO HS ROMARIO Hydroxychloroquine Sulfate 200 mg 04/03/21 21:29 04/03/21 21:57 Hydroxychloroquine Sulfate 200 Mg Tab PO 200 mg HS ROMARIO Administration Sodium Chloride 1,000 ml/ IV 1,000 mls @ 77.1 mls/hr 04/04/21 08:00 04/04/21 11:03 Solution IV Not Given .[id number] [facility] 1 ML/KG/HR Heparin Sodium (Porcine) 10, 1,001 mls @ 999 mls/hr 04/05/21 07:00 000 unit/ Sodium Chloride IRRIGATION 04/05/21 23:00 ONCE PRN INTRA-OP Heparin Sodium (Porcine) 2,500 250.5 mls @ 250 mls/hr 04/05/21 07:00 unit/ Sodium Chloride IRRIGATION 04/05/21 23:00 ONCE PRN INTRA-OP Sodium Chloride 1,000 mls @ 75 mls/hr 04/04/21 11:00 04/04/21 11:04 Saline 0.9% IV 04/04/21 19:01 Not Given .[id number] [facility] Levothyroxine Sodium 100 mcg 04/04/21 06:30 04/04/21 05:38 Levothyroxine 100 Mcg Tab PO 100 mcg DAILY@0630 [facility] Administration Metoprolol Tartrate 25 mg 04/04/21 21:00 Metoprolol Tartrate 25 Mg Tab PO BID [facility] Miscellaneous Information 1 each 04/04/21 10:50 Rx Info: Iv Contrast Was Given 1 Each Misc MISCELLANE 04/06/21 10:50 DAILY PRN Per Protocol Nitroglycerin 0.4 mg 04/03/21 18:06 Nitroglycerin Sl Tabs 0.4 Mg Tab SUBLINGUAL Q5M PRN Chest Pain Pantoprazole Sodium 40 mg 04/03/21 21:29 04/03/21 21:57 Pantoprazole 40 Mg Tablet PO 40 mg HS ROMARIO Administration Prasugrel 10 mg 04/05/21 09:00 Prasugrel 10 Mg Tab PO DAILY [facility] Zolpidem Tartrate 5 mg 04/04/21 10:50 Zolpidem 5 Mg Tab PO HS PRN Insomnia Intake and Output 04/03/21 04/04/21 04/04/21 22:59 06:59 14:59 Intake Total 73.833 100 Balance 73.833 100 Intake: IV 100 Intake, IV Titration 73.833 Amount Heparin Sod,Pork in 0.45% 73.833 NaCl 25,000 unit In 0.45 % NaCl 1 250ml.bag @ 11. 917 UNITS/KG/HR 10 mls/hr IV .Q24H [facility] Rx#: [id number] Other: Weight 83.915 kg 77.1 kg 04/03/21 17:09 04/03/21 17:09 Assessment and Plan Assessment: Assessment #1 acute coronary syndrome #2 coronary artery disease and prior stenting of the left circumflex #3 history of smoking #4 hypertension #5 dyslipidemia Plan #1 proceed with coronary angiogram #2 anti-ischemic medications including beta jhonatan #3 antiplatelet with aspirin #4 anticoagulation with heparin #5 obtain an echo #6 follow-up with the patient
--- NOTE | 2021-04-04 12:44 | P.PN ---
Subjective Progress Note Date: 04/04/21 Hospital course: Patient is a pleasant 60-year-old female with a past medical history of coronary artery disease status post 2 stents, tobacco abuse, hypertension, hypothyroidism, history of Graves' disease status post thyroid ablation and residual exophthalmos, who presented to the emergency room with complaints of chest discomfort described as a heartburn like sensation radiating throughout her her chest upon awakening which waxed and waned and shown no improvement after administration of nitroglycerin. Patient reports the pain then began to radiate up into her jaw and felt similar to previous ND so she came to the emergency department for further evaluation. In the emergency department, EKG revealed normal sinus rhythm at 66 bpm with no noted T-wave or ST abnormalities. Initial troponin was elevated at 0.061. Patient was then placed on heparin infusion and admitted under our services with consultation to cardiology for NSTEMI. Chest x-ray completed negative for acute cardiopulmonary process revealing underlying emphysema with possible interstitial lung disease and pulmonary artery hypertension. Echocardiogram completed revealing a low normal EF between 50-55% with basal inferiolateral hypokinesis. She was seen and evaluated by cardiology and taken for cardiac catheterization. During cardiac catheterization patient was found to have a reported critical lesion involving the mid to distal RCA, significant stenosis involving the proximal circumflex, intermediate disease involving the mid LAD resulting in stent placement of the RCA and circumflex. Patient to continue dual antiplatelet therapy with aspirin and Effient at this time and we will continue to monitor closely. Lipid profile showing elevated triglycerides of 158, elevated total cholesterol of 237, an elevated LDL of 157. Patient placed on atorvastatin 80 mg nightly. Physical examination: Patient seen and fully evaluated at bedside upon return from cardiac catheterization. Patient was eating her breakfast and reports feeling great at this time. TR band in place to right wrist with no noted signs of bleeding. Patient reports complete resolution of chest pain/discomfort and denies having any other complaints at this time including headache, lightheadedness, dizziness, shortness of breath, nausea, or experiencing any pain/tingling/numbness/weakness in her extremities. General: non toxic, no distress, appears at stated age Derm: no unusual rashes/lesions no unusual ecchymoses, warm, dry Head: atraumatic, normocephalic, symmetric Eyes: no lid lag, anicteric sclera, pupils equal round reactive to light, bilateral exophthalmos ENT: Nose and ears atraumatic, no thrush, no pharyngeal erythema Neck: No cervical lymphadenopathy, trachea midline, supple Mouth: no lip lesion, mucus membranes moist Cardiovascular: S1S2 reg, no murmur, positive posterior tibial pulse bilateral, no edema, capillary refill less than 2 seconds Lungs: CTA bilateral, no rhonchi, no rales , no accessory muscle use Abdominal: soft, nontender to palpation, no guarding, no appreciable organ omegaly, normal bowel sounds Ext: no gross muscle atrophy, range of motion equal and symmetrical,, no contractures, Neuro: CN II-XI grossly intact, light touch intact all 4 extremities, finger to nose within normal limits, Psych: Alert, oriented, appropriate affect Assessment and Plan of Care: NSTEMI History of CAD with previous ND -Troponins elevated 0.061, 0.074, 0.083 -EKG revealed normal sinus rhythm at 66 bpm with no noted T-wave or ST abnormalities. -Echocardiogram completed revealing a low normal EF between 50-55% with basal inferiolateral hypokinesis. -Cardiology following and took patient for cardiac catheterization. During cardiac catheterization patient was found to have a reported critical lesion involving the mid to distal RCA, significant stenosis involving the proximal circumflex, intermediate disease involving the mid LAD resulting in stent placement of the RCA and circumflex. -Patient placed on dual platelet therapy with aspirin and Effient -Continue daily medication regimen consisting of Norvasc -Lipid profile showing elevated triglycerides of 158, elevated total cholesterol of 237, an elevated LDL of 157. -Patient started on atorvastatin 80 mg nightly as well as metoprolol 25 mg twice a day -Continue telemetry monitoring -Strongly advised on importance of cessation from tobacco use Hypertension Monitor vital signs and continue daily medication regimen with Norvasc, cardiology also added metoprolol 25 mg twice a day. Hypothyroidism with history of Graves' disease status post thyroid ablation -Continue with daily home medication regimen with level thyroxine 100 g daily. Nicotine dependence Continue to educate and encourage patient on the importance and benefits of smoking cessation and the risks associated with continued use. CODE STATUS: Full Code Discussed with: Patient, RN, and patient's daughter Anticipated discharge date: Likely tomorrow Anticipated discharge place: Home A total of 40 minutes was spent on the care of this complex patient more than 50% of the time was spent in counseling and care coordination. Objective - Vital Signs Vital signs: Vital Signs Temp 98.1 F 04/04/21 07:56 Pulse 66 04/04/21 07:56 Resp 18 04/04/21 07:56 BP 131/68 04/04/21 07:56 Pulse Ox 95 04/04/21 07:56 Intake & Output 04/03/21 04/04/21 04/04/21 18:59 06:59 18:59 Intake Total 73.833 Balance 73.833 Weight 83.915 kg 77.1 kg Intake: Intake, IV Titration 73.833 Amount Heparin Sod,Pork in 0.45% 73.833 NaCl 25,000 unit In 0.45 % NaCl 1 250ml.bag @ 11. 917 UNITS/KG/HR 10 mls/hr IV .Q24H [facility] Rx#: [id number] - Labs CBC & Chem 7: 04/03/21 17:09 04/03/21 17:09 Labs: Abnormal Lab Results - Last 24 Hours (Table) 04/03/21 04/03/21 04/03/21 Range/Units 17:03 17:09 17:09 Hgb 17.3 H (11.4-16.0) gm/dL Hct 50.1 H (34.0-46.0) % APTT (22.0-30.0) sec Sodium 134 L (137-145) mmol/L Glucose 115 H (74-99) mg/dL POC Glucose (mg/dL) 119 H (75-99) mg/dL Calcium 10.4 H (8.4-10.2) mg/dL Troponin I (0.000-0.034) ng/mL Total Protein 8.4 H (6.3-8.2) g/dL 04/03/21 04/03/21 04/03/21 Range/Units 17:09 18:34 21:30 Hgb (11.4-16.0) gm/dL Hct (34.0-46.0) % APTT (22.0-30.0) sec Sodium (137-145) mmol/L Glucose (74-99) mg/dL POC Glucose (mg/dL) (75-99) mg/dL Calcium (8.4-10.2) mg/dL Troponin I 0.061 H* 0.074 H* 0.083 H* (0.000-0.034) ng/mL Total Protein (6.3-8.2) g/dL 04/04/21 04/04/21 04/04/21 Range/Units 00:31 05:40 08:04 Hgb (11.4-16.0) gm/dL Hct (34.0-46.0) % APTT 36.0 H 44.1 H (22.0-30.0) sec Sodium (137-145) mmol/L Glucose (74-99) mg/dL POC Glucose (mg/dL) 102 H (75-99) mg/dL Calcium (8.4-10.2) mg/dL Troponin I (0.000-0.034) ng/mL Total Protein (6.3-8.2) g/dL
[2021-04-04 15:10] VITALS: BMI 26.6
[2021-04-04] MEDS ORDERED: NICOTINE GUM (POLACRILEX) 2 MG GUM BUCCAL PRN (18:13)
--- NOTE | 2021-04-04 19:32 | PTCA ---
PERCUTANEOUSTRANS CORORONARY ANGIOGRAPHY PERFORMING PHYSICIAN: Mick Erickson M.D. PROCEDURES PERFORMED: 1. Successful stenting of the mid right coronary artery using a 3.5 x 33 mm Xience drug-eluting stent with an excellent angiographic result. 2. Successful stenting of the left circumflex using a 2.75 x 15 mm Xience drug-eluting stent with an excellent angiographic result. INDICATION: This is a 60-year-old female patient who sees Dr. Damon who presented to the hospital with chest discomfort and ruled in for acute coronary event. She underwent a heart catheterization that revealed critical 2-vessel coronary artery disease involving the mid RCA and proximal LCX. APPROACH: Right radial artery. COMPLICATIONS: None. LEVEL OF SEDATION: Moderate, with sedation length of 40 minutes. PROCEDURE DESCRIPTION: Please refer to diagnostic heart catheterization that was performed by Dr. Damon earlier today. Anticoagulation was achieved with heparin with continuous ACT monitoring. I did engage the RCA using an AL0.75 guiding catheter. I did wire the RCA using a Whisper wire. Balloon angioplasty was performed using a 3.0 mm balloon. Subsequently I deployed a 3.5 x 33 mm Xience drug-eluting stent in the RCA, where the stent was positioned under fluoroscopic guidance and deployed under its nominal pressure. The final angiogram showed excellent angiographic results. Subsequently I did engage the left main using an EBU guiding catheter. I did wire the left circumflex using a run-through wire. Balloon angioplasty was performed using a 2.5 x 12 mm balloon before I deployed a 2.75 x 15 mm Xience drug-eluting stent where the stent was positioned under fluoroscopic guidance and deployed under its nominal pressure. The following angiogram showed excellent angiographic results and the procedure was completed without any complication. POSTPROCEDURE MANAGEMENT: 1. Dual anti-platelet therapy. 2. Aggressive cholesterol control. 3. Risk factor modifications. 4. Follow up with the patient. MMODL / IJN: [id number] /
[2021-04-04] MEDS ORDERED: HYDROXYCHLOROQUINE SULFATE 200 MG TAB PO SCH (21:00)
[2021-04-04] MEDS ORDERED: CHOLECALCIFEROL 25 MCG (1000 IU) TABLET PO SCH (21:00)
[2021-04-04] MEDS ORDERED: PANTOPRAZOLE 40 MG TABLET PO SCH (21:00)
[2021-04-04] MEDS ORDERED: NON FORMULARY DRUG (Turmeric Root Extract [Turmeric] 500 MG Capsule) PO SCH (21:00)
[2021-04-04] MEDS ORDERED: amLODIPine 2.5 MG TAB PO SCH (21:00)
[2021-04-04] MEDS ORDERED: ATORVASTATIN 80 MG TAB PO SCH (21:00)
[2021-04-04] MEDS: HYDROXYCHLOROQUINE SULFATE 200 MG TAB PO SCH (22:31)
[2021-04-04] MEDS: PANTOPRAZOLE 40 MG TABLET PO SCH (22:32)
[2021-04-04] MEDS: METOPROLOL TARTRATE 25 MG TAB PO SCH (22:32)
[2021-04-05] MEDS: LEVOTHYROXINE 100 MCG TAB PO SCH (06:08)
[2021-04-05] MEDS ORDERED: HEPARIN SODIUM,PORCINE 10,000 UNIT in SODIUM CHLORIDE 0.9% 1,000 ML IRRIGATION PRN (07:00)
[2021-04-05] MEDS ORDERED: HEPARIN SODIUM,PORCINE 2,500 UNIT in SODIUM CHLORIDE 0.9% 250 ML IRRIGATION PRN (07:00)
--- NOTE | 2021-04-05 07:52 | P.PN ---
Subjective Progress Note Date: 04/05/21 Principal diagnosis: Coronary artery disease This is a 60-year-old female patient with coronary artery disease and prior stenting of the left circumflex as well as significant history of smoking presented to the hospital with a chest discomfort and ruled in for acute coronary event. She underwent a heart catheterization and she was found to have critical 2 vessel CAD involving the RCA and LCx which she underwent successful stenting of both. She was seen this morning. She is asymptomatic from the cardiac standpoint of view of each is hemodynamically stable. She is on dual antiplatelet therapy as well as high intensity statin. From the cardiovascular standpoint of view, the patient can be discharged home. Objective - Vital Signs Vital signs: Vital Signs Temp 98.3 F 04/05/21 04:00 Pulse 72 04/05/21 04:00 Resp 16 04/05/21 04:00 BP 152/86 04/05/21 04:00 Pulse Ox 99 04/05/21 04:00 Intake & Output 04/04/21 04/05/21 04/05/21 18:59 06:59 18:59 Intake Total 340 Output Total 800 Balance 340 -800 Weight 77.1 kg 77.3 kg Intake: IV 100 Oral 240 Output: Urine 800 Other: # Voids 2 - Constitutional General appearance: Present: no acute distress - Respiratory Respiratory: bilateral: CTA - Cardiovascular Rhythm: regular Heart sounds: normal: S1 Abnormal Heart Sounds: Present: systolic murmur - Labs CBC & Chem 7: 04/03/21 17:09 04/03/21 17:09 Labs: Abnormal Lab Results - Last 24 Hours (Table) 04/04/21 04/04/21 Range/Units 08:04 08:04 APTT 44.1 H (22.0-30.0) sec Triglycerides 158.00 H (0.00-149.00) mg/dL Cholesterol 237.00 H (0.00-200.00) mg/dL LDL Cholesterol, Calc 157.2 H (0.0-131.0) mg/dL Assessment and Plan Assessment: Assessment #1 acute coronary syndrome #2 coronary artery disease and status post PCI of the LCx and RCA #3 history of smoking #4 hypertension #5 dyslipidemia Plan #1 continue the current medical regimen including dual antiplatelet therapy #2 the patient can be discharged home
[2021-04-05 08:10] LABS: Basophils # (A) 0.1 k/uL (0-0.2); Basophils % (A) 0 %; Eosinophils # (A) 0.3 k/uL (0-0.7); Eosinophils % (A) 2 %; HCT 44.9 % (34.0-46.0); Lymphocytes # (A) 0.3 k/uL (1.0-4.8); Lymphocytes % (A) 2 %; MCH 33.5 pg (25.0-35.0); MCHC 33.4 g/dL (31.0-37.0); MCV 100.1 fL (80.0-100.0); Mean Platelet Volume 7.3; Monocytes # (A) 0.6 k/uL (0-1.0); Monocytes % (A) 4 %; Neutrophils # (A) 13.3 k/uL (1.3-7.7); Neutrophils % (A) 90 %; Platelet Count 265 k/uL (150-450); RBC 4.48 m/uL (3.80-5.40); RDW 12.4 % (11.5-15.5); WBC 14.7 k/uL (3.8-10.6)
[2021-04-05 08:29] LABS: African American GFR (CKD) >90 (>60 ml/min/1.73 sqM); Anion Gap 11 mmol/L; Blood Urea Nitrogen 13 mg/dL (7-17); Calcium 9.9 mg/dL (8.4-10.2); Carbon Dioxide 22 mmol/L (22-30); Chloride 99 mmol/L (98-107); Glucose 101 mg/dL (74-99); Non-African American GFR(CKD) >90 (>60 ml/min/1.73 sqM); Sodium 132 mmol/L (137-145)
[2021-04-05] MEDS ORDERED: PRASUGREL 10 MG TAB PO SCH (09:00)
[2021-04-05] MEDS ORDERED: ASPIRIN 81 MG PO SCH (09:00)
[2021-04-05] MEDS: SODIUM CHLORIDE 0.9% 1,000 ML in EMPTY BAG 1 BAG IV SCH (09:29)
--- NOTE | 2021-04-05 11:34 | P.DS ---
Providers Date of admission: 04/04/21 11:08 Expected date of discharge: 04/05/21 Attending physician: Chantale Perez, DO Consults: 04/03/21 18:06 Consult Physician Urgent Consulting Provider: Milana Felipe Consult Reason/Comments: Unstable angina Do you want consulting provider notified?: Yes 04/04/21 10:50 Consult Physician Routine Consulting Provider: Milana Felipe Consult Reason/Comments: Post Interventional patient Do you want consulting provider notified?: Already Contacted Primary care physician: Arlen Aguirre Hospital Course: Discharge Diagnosis: NSTEMI History of CAD with previous ID Hypertension Hypothyroidism with history of Graves' disease status post thyroid ablation Nicotine dependence Hospital Course: Patient is a pleasant 60-year-old female with a past medical history of coronary artery disease status post 2 stents, tobacco abuse, hypertension, hypothyroidism, history of Graves' disease status post thyroid ablation and residual exophthalmos. She presented to the emergency room with complaints of chest discomfort described as a heartburn like sensation radiating throughout her her chest upon awakening which waxed and waned and showed no improvement after administration of nitroglycerin. Patient reports the pain then began to radiate up into her jaw and felt similar to previous ID so she came to the emergency department for further evaluation. In the emergency department, EKG revealed normal sinus rhythm at 66 bpm with no noted T-wave or ST abnormalities. Initial troponin was elevated at 0.061. Patient was then placed on heparin infusion and admitted under our services with consultation to cardiology for NSTEMI. Chest x-ray completed negative for acute cardiopulmonary process revealing underlying emphysema with possible interstitial lung disease and pulmonary artery hypertension. Echocardiogram completed revealing a low normal EF between 50-55% with basal inferiolateral hypokinesis. She was seen and evaluated by cardiology and taken for cardiac catheterization. During cardiac catheterization patient was found to have a reported critical lesion involving the mid to distal RCA, significant stenosis involving the proximal circumflex, intermediate disease involving the mid LAD resulting in stent placement of the RCA and circumflex. Patient then started on dual antiplatelet therapy with aspirin and Effient and monitored throughout the night. Lipid profile showing elevated triglycerides of 158, elevated total cholesterol of 237, an elevated LDL of 157. Patient also placed on atorvastatin 80 mg nightly. Pt had no further episodes of chest pain or discomfort. Cardiac cath site to right wrist showing no signs of bleeding, redness, or hematoma. Cardiology recommending follow-up in office in 1 week. Patient medically stable for discharge home at this time. Strongly advised on importance of cessation from tobacco use. Physical examination: Patient seen and fully evaluated at bedside this morning. She reports feeling great at this time. Cardiac cath site to right wrist showing no signs of erythema, bleeding, or hematoma. Patient denies having any complaints at this time including headache, lightheadedness, dizziness, chest pain, palpitations, s hortness of breath, nausea, or experiencing any numbness/tingling/weakness in her extremities. General: non toxic, no distress, appears at stated age Derm: no unusual rashes/lesions no unusual ecchymoses, warm, dry Head: atraumatic, normocephalic, symmetric Eyes: no lid lag, anicteric sclera, pupils equal round reactive to light, bilateral exophthalmos ENT: Nose and ears atraumatic, no thrush, no pharyngeal erythema Neck: No cervical lymphadenopathy, trachea midline, supple Mouth: no lip lesion, mucus membranes moist Cardiovascular: S1S2 reg, no murmur, positive posterior tibial pulses bila terally, no edema, capillary refill less than 2 seconds Lungs: CTA bilateral, no rhonchi, no rales , no accessory muscle use Abdominal: soft, nontender to palpation, no guarding, no appreciable organ omegaly, normal bowel sounds Ext: no gross muscle atrophy, range of motion equal and symmetrical,, no contractures, Neuro: CN II-XI! grossly intact, Psych: Alert, oriented, appropriate affect A total of 45 minutes of time were spent preparing this complex discharge summary. Patient Condition at Discharge: Stable Plan - Discharge Summary Discharge Rx Participant: No New Discharge Prescriptions: New Prasugrel [Effient] 10 mg PO DAILY 30 Days #30 tab Atorvastatin [Lipitor] 80 mg PO HS 30 Days #30 tab Nicotine Gum (Polacrilex) [Nicorette] 2 mg BUCCAL Q4HR PRN 30 Days #180 piece gum PRN Reason: Nicotine Cravings Metoprolol Tartrate [Lopressor] 25 mg PO BID 30 Days #60 tab Continue Levothyroxine Sodium [Synthroid] 100 mcg PO AC-BRKFST tab Nitroglycerin Sl Tabs [Nitrostat] 0.4 mg SUBLINGUAL Q5M PRN #25 tab PRN Reason: Chest Pain amLODIPine [Norvasc] 2.5 mg PO HS Aspirin 81 mg PO HS Omeprazole [PriLOSEC] 40 mg PO HS Turmeric Root Extract [Turmeric] 500 mg PO HS Cholecalciferol [Vitamin D3 (25 Mcg = 1000 Iu)] 25 mcg PO HS Hydroxychloroquine Sulfate [Plaquenil] 200 mg PO HS Discharge Medication List Levothyroxine Sodium [Synthroid] 100 mcg PO AC-BRKFST tab 12/24/16 [Rx] Nitroglycerin Sl Tabs [Nitrostat] 0.4 mg SUBLINGUAL Q5M PRN #25 tab 12/24/16 [Rx] Aspirin 81 mg PO HS 07/19/19 [History] amLODIPine [Norvasc] 2.5 mg PO HS 07/19/19 [History] Omeprazole [PriLOSEC] 40 mg PO HS 02/15/20 [History] Cholecalciferol [Vitamin D3 (25 Mcg = 1000 Iu)] 25 mcg PO HS 04/03/21 [History] Hydroxychloroquine Sulfate [Plaquenil] 200 mg PO HS 04/03/21 [History] Turmeric Root Extract [Turmeric] 500 mg PO HS 04/03/21 [History] Atorvastatin [Lipitor] 80 mg PO HS 30 Days #30 tab 04/04/21 [Rx] Prasugrel [Effient] 10 mg PO DAILY 30 Days #30 tab 04/04/21 [Rx] Metoprolol Tartrate [Lopressor] 25 mg PO BID 30 Days #60 tab 04/05/21 [Rx] Nicotine Gum (Polacrilex) [Nicorette] 2 mg BUCCAL Q4HR PRN 30 Days #180 piece gum 04/05/21 [Rx] Follow up Appointment(s)/Referral(s): Mick Erickson MD [STAFF PHYSICIAN] - 1 Week (office will call you with appt time ) Arlen Aguirre MD [Primary Care Provider] - 1-2 days Patient Instructions/Handouts: *Surgery [facility] - After Heart Catheterization - [employer] Instructions, Safe Use of Antiplatelet Medication (DC), After Radial Heart Catheterization (GEN) Activity/Diet/Wound Care/Special Instructions: Rx for Effient filled at [facility] - copay $10 Cardiology Instructions After Cardiac Catheterization with Stent Placement: 1. Aspirin as anti-platelet therapy - Aspirin lessens the chance of heart attack and stroke. It helps prevent blood clots from forming, allowing the blood to flow more easily. Each day, you will take one 81 mg (non-enteric coated) tablet daily. You will be taking aspirin as a lifelong medication. Do not stop unless instructed by your doctor. 2. Anti-platelet Therapy. -In addition to aspirin, you will take ONE of the following anti-platelet medications daily. This will help prevent a clot from forming in your stent: Plavix (clopidogrel), Effient (prasugrel), OR Brilinta (ticagrelor) -You will need to take your anti-platelet medicine every day for 12 months -Please consult your heart doctor before you stop this medicine. -They may want you to continue for a longer period of time. 3. Statins -A statin medication lowers cholesterol levels in the blood. This helps slow the progression of heart disease. - Please take your statin medication as prescribed by your doctor. -You may be taking one of the following statins: Lipitor (atorvastatin) Other Medications: -Beta jhonatan (metoprolol) Is a medication that protects your heart from stress and can prevent future heart attacks. It can slow your heart rate. It can take weeks for your body to get used to a beta jhonatan. The dose may need to be changed a few times as your body adjusts Do not stop taking these medicines without talking to your doctor. -Take all other medicines as directed by your doctor. Do not take any extra aspirin or ibuprofen. They can increase your risk of bleeding. Many [id number] drugs contain aspirin. If you are unsure about what the drug contains, check with your pharmacist before taking it. -For mild discomfort, you may take plain Tylenol (acetaminophen). Follow dose directions, but do not take more than 4,000 mg of acetaminophen in 24 hours. Contact your doctor right away or go to the nearest hospital Emergency Room if you have: -Severe angina or chest pain. (This may be a sign of a problem with your stent.) -Excessive bruising, blood in urine/stool or black tarry stools. Healthy LifeStyle It is important to keep a heart healthy lifestyle. This can improve your long- term health and decrease your risk for heart attacks. -Quitting tobacco: the most important thing you can do to protect your health. -Managing your blood cholesterol, blood pressure, weight, and stress. -The importance of regular exercise. -Heart Healty Diet: Include more plants in your diete. Lots of fruits and vegetables, nuts, beans, legumes, fish, whole grains, plant-based oils. -Avoid fried foods and animal fats and processed meats Discharge Disposition: HOME SELF-CARE
[2021-04-05 11:45] VITALS: BP 117/73; PULSE 69; RESP 18; TEMP 98.3
[2021-04-05] MEDS: METOPROLOL TARTRATE 25 MG TAB PO SCH (11:46)
== END 2021-04-05 13:14 | disposition home or self-care (01) | DRG 247 ==
LOC: EC 16:15 → 3SCARD 18:06 → INTOOBSV 18:06 → 3SCARD 18:06 → OBSVTOIN 04-04 11:08
PROVIDERS: ADMIT Internal Medicine; ATTEND Internal Medicine
PROC: B246ZZ4 Ultrasonography of Right and Left Heart, Transesophageal (ICD-10-PCS; 2021-04-04)
PROC: 027134Z Dilation of Coronary Artery, Two Arteries with Drug-eluting Intraluminal Device, Percutaneous Approach (ICD-10-PCS; principal; 2021-04-04 09:50)
PROC: 4A023N7 Measurement of Cardiac Sampling and Pressure, Left Heart, Percutaneous Approach (ICD-10-PCS; 2021-04-04 09:50)
PROC: B2151ZZ Fluoroscopy of Left Heart using Low Osmolar Contrast (ICD-10-PCS; 2021-04-04 09:50)
DX: I21.4 Non-ST elevation (NSTEMI) myocardial infarction (principal); I25.110 Atherosclerotic heart disease of native coronary artery with unstable angina pectoris; F17.210 Nicotine dependence, cigarettes, uncomplicated; J43.9 Emphysema, unspecified; I10 Essential (primary) hypertension; Z20.822 Contact with and (suspected) exposure to COVID-19; I25.2 Old myocardial infarction; E03.9 Hypothyroidism, unspecified; E78.1 Pure hyperglyceridemia; E78.5 Hyperlipidemia, unspecified; M19.90 Unspecified osteoarthritis, unspecified site; Z79.82 Long term (current) use of aspirin; Z79.890 Hormone replacement therapy; Z79.899 Other long term (current) drug therapy; Z95.5 Presence of coronary angioplasty implant and graft; Z85.828 Personal history of other malignant neoplasm of skin; Z86.79 Personal history of other diseases of the circulatory system; Z71.6 Tobacco abuse counseling
CPT/HCPCS: 36415; 71046; 80048; 80053; 80061; 83735; 84484; 85025; 85610; 85730; 87635; 93005; 93306; 93458; 99285

== ENCOUNTER 2021-09-09 02:55 | Emergency (ER) | payer BC, MEDICARE ==
[2021-09-09 03:43] VITALS: TEMP 97.6
[2021-09-09 03:48] LABS: Basophils # (A) 0.1 k/uL (0-0.2); Basophils % (A) 1 %; Eosinophils # (A) 0.5 k/uL (0-0.7); Eosinophils % (A) 4 %; HCT 42.6 % (34.0-46.0); HGB 14.6 gm/dL (11.4-16.0); Lymphocytes # (A) 1.5 k/uL (1.0-4.8); Lymphocytes % (A) 12 %; MCH 33.4 pg (25.0-35.0); MCHC 34.2 g/dL (31.0-37.0); MCV 97.7 fL (80.0-100.0); Mean Platelet Volume 7.3; Monocytes # (A) 0.5 k/uL (0-1.0); Monocytes % (A) 3 %; Neutrophils # (A) 10.3 k/uL (1.3-7.7); Neutrophils % (A) 78 %; Platelet Count 337 k/uL (150-450); RBC 4.36 m/uL (3.80-5.40); RDW 13.4 % (11.5-15.5); WBC 13.1 k/uL (3.8-10.6)
--- NOTE | 2021-09-09 03:54 | XR ---
EXAMINATION TYPE: XR chest 2V DATE OF EXAM: 09/09/2021 COMPARISON: 04/03/2021 HISTORY: Chest pain TECHNIQUE: 2 views FINDINGS: Heart is normal. Lungs are clear of infiltrate. There is no heart failure. There are no hil ar masses. Costophrenic angles are clear. Thoracic aorta is atheromatous. There is slight coarsening of interstitial markings. IMPRESSION: Mild pulmonary fibrosis. Normal heart. No change.
[2021-09-09 04:00] LABS: Prothrombin Time 10.6 sec (9.0-12.0)
[2021-09-09 04:16] LABS: ALT 36 U/L (4-34); AST 42 U/L (14-36); African American GFR (CKD) >90 (>60 ml/min/1.73 sqM); Albumin 4.7 g/dL (3.5-5.0); Alkaline Phosphatase 233 U/L (38-126); Anion Gap 9 mmol/L; Blood Urea Nitrogen 14 mg/dL (7-17); Calcium 9.7 mg/dL (8.4-10.2); Carbon Dioxide 26 mmol/L (22-30); Chloride 99 mmol/L (98-107); Glucose 142 mg/dL (74-99); Lipase 251 U/L (23-300); Magnesium 1.7 mg/dL (1.6-2.3); Non-African American GFR(CKD) >90 (>60 ml/min/1.73 sqM); Potassium 4.1 mmol/L (3.5-5.1); Sodium 134 mmol/L (137-145); Total Bilirubin 0.7 mg/dL (0.2-1.3); Total Protein 8.8 g/dL (6.3-8.2)
--- NOTE | 2021-09-09 04:20 | ED ---
Chest Pain HPI - General Chief Complaint: Chest Pain Stated Complaint: Chest pain Time Seen by Provider: 09/09/21 03:10 Source: patient, RN notes reviewed, old records reviewed Mode of arrival: wheelchair Limitations: no limitations - History of Present Illness Initial Comments: This is a 61-year-old female DF for evaluation today. Patient presents today for evaluation of chest pain patient does have significant history of heart disease with stents placed. 4. Ultrasound about 6 months ago. Patient has follow up with cardiology today. Patient burning epigastric pain right-sided chest pain and abdominal pain just prior to arrival. Patient was unable to sleep this pain. Comes DF for evaluation. On arrival to ER patient has no significant pain denying any travel show sick contacts no fever cough or congestion MD Complaint: chest pain -: hour(s) Onset: during rest, during exertion, awoke with symptoms Pain Location: right chest Pain Radiation: back Severity: moderate Severity scale (1-10): 4 Quality: tightness, sharp, other (Burning) Consistency: constant, now resolved Improves With: nothing Worsens With: nothing Anginal Symptoms: nausea Other Symptoms: acid taste in mouth Treatments Prior to Arrival: none - Related Data Home Medications Medication Instructions Recorded Confirmed Aspirin 81 mg PO HS 07/19/19 04/03/21 amLODIPine [Norvasc] 2.5 mg PO HS 07/19/19 04/03/21 Omeprazole [PriLOSEC] 40 mg PO HS 02/15/20 04/03/21 Cholecalciferol [Vitamin D3 (25 25 mcg PO HS 04/03/21 04/03/21 Mcg = 1000 Iu)] Hydroxychloroquine Sulfate 200 mg PO HS 04/03/21 04/03/21 [Plaquenil] Turmeric Root Extract [Turmeric] 500 mg PO HS 04/03/21 04/03/21 Previous Rx's Medication Instructions Recorded Levothyroxine Sodium [Synthroid] 100 mcg PO AC-BRKFST tab 12/24/16 Nitroglycerin Sl Tabs [Nitrostat] 0.4 mg SUBLINGUAL Q5M PRN #25 tab 12/24/16 Atorvastatin [Lipitor] 80 mg PO HS 30 Days #30 tab 04/04/21 Prasugrel [Effient] 10 mg PO DAILY 30 Days #30 tab 04/04/21 Metoprolol Tartrate [Lopressor] 25 mg PO BID 30 Days #60 tab 04/05/21 Nicotine 21Mg/24Hr Patch [Habitrol] 1 each TRANSDERM DAILY 30 Days #30 04/05/21 patch Nicotine Gum (Polacrilex) 2 mg BUCCAL Q4HR PRN 30 Days #180 04/05/21 [Nicorette] piece gum Allergies Allergy/AdvReac Type Severity Reaction Status Date / Time acetaminophen AdvReac Nausea & Verified 09/09/21 03:05 [From Tylenol-Codeine #3] Vomiting adhesive tape AdvReac Rash/Hives Verified 04/03/21 16:33 codeine AdvReac Nausea & Verified 09/09/21 03:05 [From Tylenol-Codeine #3] Vomiting diphenhydramine AdvReac dizzy,shaky, Verified 04/03/21 16:33 [From Benadryl] overtired hydrocodone [From Vicodin] AdvReac Unknown Verified 09/09/21 03:05 Review of Systems ROS Statement: Those systems with pertinent positive or pertinent negative responses have been documented in the HPI. ROS Other: All systems not noted in ROS Statement are negative. EKG Findings - EKG Comments: EKG Findings:: EKG is sinus rhythm 66 NH 170 QRS 90 QTC 433 Past Medical History Past Medical History: Cancer, Chest Pain / Angina, COPD, Hypertension, Osteoar thritis (OA), Thyroid Disorder Additional Past Medical History / Comment(s): skin CA,grave's disease,sinus problems. THYROID EYE DISEASE. History of Any Multi-Drug Resistant Organisms: None Reported Past Surgical History: Section, Heart Catheterization With Stent Additional Past Surgical History / Comment(s): C-sec X2, uterine ablation, eye surgery from graves Dx, sinus surgery, skin ca removed from breast,heart stents x4 Past Anesthesia/Blood Transfusion Reactions: No Reported Reaction Date of Last Stent Placement:: Past Psychological History: No Psychological Hx Reported Smoking Status: Current every day smoker Past Alcohol Use History: Daily Past Drug Use History: None Reported - Past Family History Mother Family Medical History: Coronary Artery Disease (CAD), CVA/TIA, Diabetes Mellitus, Hypertension Father Family Medical History: Diabetes Mellitus, Rheumatoid Arthritis (RA) Additional Family Medical History / Comment(s): pericardial fluid removal x2 Brother(s) Family Medical History: Diabetes Mellitus General Exam General appearance: alert, in no apparent distress Head exam: Present: atraumatic, normocephalic, normal inspection Eye exam: Present: normal appearance, PERRL, EOMI. Absent: scleral icterus, conjunctival injection, periorbital swelling ENT exam: Present: normal exam, mucous membranes moist Neck exam: Present: normal inspection. Absent: tenderness, meningismus, lymphadenopathy Respiratory exam: Present: normal lung sounds bilaterally. Absent: respiratory distress, wheezes, rales, rhonchi, stridor Cardiovascular Exam: Present: regular rate, normal rhythm, normal heart sounds. Absent: systolic murmur, diastolic murmur, rubs, gallop, clicks GI/Abdominal exam: Present: soft, normal bowel sounds. Absent: distended, tenderness, guarding, rebound, rigid Extremities exam: Present: normal inspection, full ROM, normal capillary refill. Absent: tenderness, pedal edema, joint swelling, calf tenderness Back exam: Present: normal inspection Neurological exam: Present: alert, oriented X3, CN II-XII intact Psychiatric exam: Present: normal affect, normal mood Skin exam: Present: warm, dry, intact, normal color. Absent: rash Course Vital Signs 09/09/21 09/09/21 09/09/21 03:01 03:42 05:53 Temperature 98.4 F 97.6 F Pulse Rate 71 67 63 Respiratory 19 24 15 Rate Blood Pressure 138/62 139/80 143/88 O2 Sat by Pulse 98 98 99 Oximetry - Reevaluation(s) Reevaluation #1: 09/09/21 Medical record is reviewed 09/09/21 Reevaluation #2: 09/09/21 patient remains without chest pain here in the ER Reevaluation #3: 09/09/21 Patient informed results and questions answered Chest Pain MDM - MDM 61 female to the emergency department for evaluation of chest pain. Patient informed medical be possibly biliary colic, she has cardiology appointment this afternoon which she will keep. Patient can be discharged home Disposition Clinical Impression: Chest pain, Atypical chest pain, Gastritis, Biliary colic Disposition: HOME SELF-CARE Condition: Good Instructions (If sedation given, give patient instructions): Chest Pain (ED) Is patient prescribed a controlled substance at d/c from ED?: No Referrals: Mick Erickson MD [STAFF PHYSICIAN] - 1-2 days
[2021-09-09 05:55] VITALS: BP 143/88; PULSE 63; RESP 15
== END 2021-09-09 06:02 | disposition home or self-care (01) ==
LOC: EC 02:55
DX: K29.70 Gastritis, unspecified, without bleeding (principal); K80.50 Calculus of bile duct without cholangitis or cholecystitis without obstruction; I10 Essential (primary) hypertension; J44.9 Chronic obstructive pulmonary disease, unspecified; M19.90 Unspecified osteoarthritis, unspecified site; F17.200 Nicotine dependence, unspecified, uncomplicated; Z79.82 Long term (current) use of aspirin; Z79.890 Hormone replacement therapy; Z79.899 Other long term (current) drug therapy
CPT/HCPCS: 36415; 71046; 80053; 83690; 83735; 83880; 84484; 85025; 85610; 85730; 93005; 99285

== ENCOUNTER 2021-10-27 18:57 | Emergency (ER) | payer BC, MEDICARE ==
[2021-10-27 19:29] VITALS: BP 127/79; PULSE 88; RESP 18; TEMP 98.6
--- NOTE | 2021-10-27 23:54 | US ---
EXAMINATION TYPE: US gallbladder DATE OF EXAM: 10/27/2021 COMPARISON: NONE CLINICAL HISTORY: abd pain. Abdominal pain that radiates to the back EXAM MEASUREMENTS: Liver Length: 17.5 cm Gallbladder Wall: 0.16 cm CBD: 0.60 cm Right Kidney: 11.7 x 4.8 x 4.9 cm Pancreas: Tail obscured by overlying bowel gas Liver: Hepatomegaly; heterogenous echotexture Gallbladder: Appears wnl Evidence for sonographic Wang's sign: Yes CBD: Upper limits for non-cholecystectomy patient Right Kidney: No hydronephrosis or masses seen IMPRESSION: There is some mild fatty infiltration of the liver. No focal liver defect. No dilated ducts. No galls tones.
[2021-10-28 01:17] LABS: Basophils # (A) 0.2 k/uL (0-0.2); Basophils % (A) 1 %; Eosinophils # (A) 0.8 k/uL (0-0.7); Eosinophils % (A) 7 %; HCT 41.1 % (34.0-46.0); HGB 13.6 gm/dL (11.4-16.0); Lymphocytes # (A) 2.9 k/uL (1.0-4.8); Lymphocytes % (A) 24 %; MCH 32.2 pg (25.0-35.0); MCV 97.3 fL (80.0-100.0); Mean Platelet Volume 7.7; Monocytes # (A) 0.6 k/uL (0-1.0); Monocytes % (A) 5 %; Neutrophils # (A) 7.3 k/uL (1.3-7.7); Neutrophils % (A) 61 %; Platelet Count 311 k/uL (150-450); RBC 4.22 m/uL (3.80-5.40); RDW 12.8 % (11.5-15.5); WBC 11.9 k/uL (3.8-10.6)
[2021-10-28 01:34] LABS: ALT 24 U/L (4-34); AST 24 U/L (14-36); African American GFR (CKD) >90 (>60 ml/min/1.73 sqM); Albumin 4.7 g/dL (3.5-5.0); Alkaline Phosphatase 193 U/L (38-126); Anion Gap 10 mmol/L; Blood Urea Nitrogen 12 mg/dL (7-17); Calcium 9.6 mg/dL (8.4-10.2); Carbon Dioxide 25 mmol/L (22-30); Chloride 101 mmol/L (98-107); Glucose 118 mg/dL (74-99); Lipase 157 U/L (23-300); Non-African American GFR(CKD) >90 (>60 ml/min/1.73 sqM); Potassium 3.7 mmol/L (3.5-5.1); Sodium 136 mmol/L (137-145); Total Bilirubin 0.8 mg/dL (0.2-1.3); Total Protein 8.3 g/dL (6.3-8.2)
[2021-10-28 02:53] LABS: Appearance,Urine Clear (Clear); Bilirubin,Urine Negative (Negative); Blood,Urine Negative (Negative); Color,Urine Yellow; Glucose,Urine (UA) Negative (Negative); Ketones,Urine Negative (Negative); Leukocyte Esterase,Urine Negative (Negative); Nitrite,Urine Negative (Negative); PH, Urine 6.5 (5.0-8.0); Protein,Urine Negative (Negative); Specific Gravity,Urine 1.012 (1.001-1.035); Urobilinogen,Urine <2.0 mg/dL (<2.0)
--- NOTE | 2021-10-28 05:27 | CT ---
EXAMINATION TYPE: CT abdomen pelvis w con DATE OF EXAM: 10/28/2021 COMPARISON: None HISTORY: PAIN CT DLP: 995.1 mGycm Automated exposure control for dose reduction was used. CONTRAST: Performed with IV Contrast, patient injected with 100 mL of Isovue 370. Images obtained from the diaphragm to the floor the pelvis with IV contrast. Lung bases show subsegmental atelectasis. Heart size is normal. No pericardial effusion. Liver spleen stomach pancreas and gallbladder appear intact. The bile ducts are not dilated. There is no adrenal mass. Kidneys show satisfactory contrast opacification. There is no hydronephrosi s. Ureters are not dilated. There is no retroperitoneal adenopathy. Abdominal aorta is atheromatous. There is 3.3 cm aneurysm of the lower abdominal aorta. No dissection. Bladder distends smoothly. Uret ers are not dilated. Delayed images show normal renal excretion. There is no inguinal hernia. There a re sigmoid diverticula. No diverticulitis. Appendix is medial and appears normal. There is no mesenteric edema. No ascites or free air. No bowel obstruction. The lumbar vertebrae have normal alignment. There is no compression fracture. Disc spaces are normal. There is no focal bone destruction. Bony pelvis is intact. Hip joints are intact. Sacroiliac joints are intact. IMPRESSION: Sigmoid diverticulosis without diverticulitis. No acute abnormality of the abdomen and pelvis.
[2021-10-28] MEDS ORDERED: traMADol 50 MG STARTER PACK 3 TAB BTL PO STA (05:56)
[2021-10-28] MEDS ORDERED: ONDANSETRON 4 MG ODT STARTER PACK 2 TAB BTL PO STA (05:56)
--- NOTE | 2021-10-28 06:01 | ED ---
Abdominal Pain HPI - General Chief Complaint: Abdominal Pain Stated Complaint: Chest Pain, Abdominal Pain, Chest tightness, Time Seen by Provider: 10/28/21 04:07 Source: patient Mode of arrival: ambulatory Limitations: no limitations - History of Present Illness MD Complaint: abdominal pain -: hour(s) Location: RUQ, epigastric Radiation: back, chest Migration to: no migration Severity: moderate Quality: aching Consistency: constant Improves With: nothing Worsens With: eating Associated Symptoms: nausea - Related Data Home Medications Medication Instructions Recorded Confirmed Aspirin 81 mg PO HS 07/19/19 04/03/21 amLODIPine [Norvasc] 2.5 mg PO HS 07/19/19 04/03/21 Omeprazole [PriLOSEC] 40 mg PO HS 02/15/20 04/03/21 Cholecalciferol [Vitamin D3 (25 25 mcg PO HS 04/03/21 04/03/21 Mcg = 1000 Iu)] Hydroxychloroquine Sulfate 200 mg PO HS 04/03/21 04/03/21 [Plaquenil] Turmeric Root Extract [Turmeric] 500 mg PO HS 04/03/21 04/03/21 Previous Rx's Medication Instructions Recorded Levothyroxine Sodium [Synthroid] 100 mcg PO AC-BRKFST tab 12/24/16 Nitroglycerin Sl Tabs [Nitrostat] 0.4 mg SUBLINGUAL Q5M PRN #25 tab 12/24/16 Atorvastatin [Lipitor] 80 mg PO HS 30 Days #30 tab 04/04/21 Prasugrel [Effient] 10 mg PO DAILY 30 Days #30 tab 04/04/21 Metoprolol Tartrate [Lopressor] 25 mg PO BID 30 Days #60 tab 04/05/21 Nicotine 21Mg/24Hr Patch [Habitrol] 1 each TRANSDERM DAILY 30 Days #30 04/05/21 patch Nicotine Gum (Polacrilex) 2 mg BUCCAL Q4HR PRN 30 Days #180 04/05/21 [Nicorette] piece gum traMADol HCl [Ultram] 50 mg PO Q6H PRN #20 tab 10/28/21 Allergies Allergy/AdvReac Type Severity Reaction Status Date / Time acetaminophen AdvReac Nausea & Verified 10/27/21 19:29 [From Tylenol-Codeine #3] Vomiting adhesive tape AdvReac Rash/Hives Verified 10/27/21 19:29 codeine AdvReac Nausea & Verified 10/27/21 19:29 [From Tylenol-Codeine #3] Vomiting diphenhydramine AdvReac dizzy,shaky, Verified 10/27/21 19:29 [From Benadryl] overtired hydrocodone [From Vicodin] AdvReac Unknown Verified 10/27/21 19:29 Review of Systems ROS Statement: Those systems with pertinent positive or pertinent negative responses have been documented in the HPI. ROS Other: All systems not noted in ROS Statement are negative. Constitutional: Denies: fever, chills Respiratory: Denies: cough, dyspnea Cardiovascular: Denies: chest pain, palpitations, edema Gastrointestinal: Reports: abdominal pain, nausea. Denies: vomiting, diarrhea, constipation, melena, hematochezia Genitourinary: Denies: urgency, dysuria, frequency Musculoskeletal: Denies: back pain Skin: Denies: rash Neurological: Denies: headache, weakness, numbness Past Medical History Past Medical History: Cancer, Chest Pain / Angina, COPD, Hypertension, Osteoarthritis (OA), Thyroid Disorder Additional Past Medical History / Comment(s): skin CA,grave's disease,sinus problems. THYROID EYE DISEASE. History of Any Multi-Drug Resistant Organisms: None Reported Past Surgical History: Section, Heart Catheterization With Stent Additional Past Surgical History / Comment(s): C-sec X2, uterine ablation, eye surgery from graves Dx, sinus surgery, skin ca removed from breast,heart stents x4 Past Anesthesia/Blood Transfusion Reactions: No Reported Reaction Date of Last Stent Placement:: Past Psychological History: No Psychological Hx Reported Smoking Status: Current every day smoker Past Alcohol Use History: Daily Past Drug Use History: None Reported - Past Family History Mother Family Medical History: Coronary Artery Disease (CAD), CVA/TIA, Diabetes Melli tus, Hypertension Father Family Medical History: Diabetes Mellitus, Rheumatoid Arthritis (RA) Additional Family Medical History / Comment(s): pericardial fluid removal x2 Brother(s) Family Medical History: Diabetes Mellitus General Exam Limitations: no limitations General appearance: alert, in no apparent distress Head exam: Present: atraumatic, normocephalic Eye exam: Present: normal appearance. Absent: scleral icterus, conjunctival injection ENT exam: Present: normal oropharynx Neck exam: Present: normal inspection Respiratory exam: Present: normal lung sounds bilaterally. Absent: respiratory distress, wheezes, rales, rhonchi, stridor Cardiovascular Exam: Present: regular rate, normal rhythm, normal heart sounds. Absent: systolic murmur, diastolic murmur, rubs, gallop GI/Abdominal exam: Present: soft, tenderness (There is mild right upper quadrant and epigastric tenderness without rebound or guarding). Absent: distended, guarding, rebound, rigid, mass, pulsatile mass, hernia Extremities exam: Present: normal inspection, normal capillary refill. Absent: pedal edema, calf tenderness Back exam: Present: normal inspection. Absent: CVA tenderness (R), CVA tenderness (L) Neurological exam: Present: alert Skin exam: Present: warm, dry, intact, normal color. Absent: rash Course Vital Signs 10/27/21 19:27 Temperature 98.6 F Pulse Rate 88 Respiratory 18 Rate Blood Pressure 127/79 O2 Sat by Pulse 98 Oximetry Medical Decision Making - Medical Decision Making Patient is 61-year-old woman here with epigastric and right upper quadrant pain and mild tenderness. Patient suspects and from history symptoms suggestive of gallbladder. The workup unremarkable. Patient is feeling better following medication and fluids. Discussed appropriate further care and follow-up as well as possibility of having to have a HIDA scan and follow with surgery. Discussed appropriate follow-up and return parameters. - Lab Data Result diagrams: 10/28/21 00:59 10/28/21 00:59 Lab Results 10/28/21 10/28/21 10/28/21 Range/Units 00:59 00:59 02:11 WBC 11.9 H (3.8-10.6) k/uL RBC 4.22 (3.80-5.40) m/uL Hgb 13.6 (11.4-16.0) gm/dL Hct 41.1 (34.0-46.0) % MCV 97.3 (80.0-100.0) fL MCH 32.2 (25.0-35.0) pg MCHC 33.0 (31.0-37.0) g/dL RDW 12.8 (11.5-15.5) % Plt Count 311 (150-450) k/uL MPV 7.7 Neutrophils % 61 % Lymphocytes % 24 % Monocytes % 5 % Eosinophils % 7 % Basophils % 1 % Neutrophils # 7.3 (1.3-7.7) k/uL Lymphocytes # 2.9 (1.0-4.8) k/uL Monocytes # 0.6 (0-1.0) k/uL Eosinophils # 0.8 H (0-0.7) k/uL Basophils # 0.2 (0-0.2) k/uL Sodium 136 L (137-145) mmol/L Potassium 3.7 (3.5-5.1) mmol/L Chloride 101 (98-107) mmol/L Carbon Dioxide 25 (22-30) mmol/L Anion Gap 10 mmol/L BUN 12 (7-17) mg/dL Creatinine 0.60 (0.52-1.04) mg/dL Est GFR (CKD-EPI)AfAm >90 (>60 ml/min/1.73 sqM) Est GFR (CKD-EPI)NonAf >90 (>60 ml/min/1.73 sqM) Glucose 118 H (74-99) mg/dL Calcium 9.6 (8.4-10.2) mg/dL Total Bilirubin 0.8 (0.2-1.3) mg/dL AST 24 (14-36) U/L ALT 24 (4-34) U/L Alkaline Phosphatase 193 H (38-126) U/L Total Protein 8.3 H (6.3-8.2) g/dL Albumin 4.7 (3.5-5.0) g/dL Lipase 157 (23-300) U/L Urine Color Yellow Urine Appearance Clear (Clear) Urine pH 6.5 (5.0-8.0) Ur Specific [place] 1.012 (1.001-1.035) Urine Protein Negative (Negative) Urine Glucose (UA) Negative (Negative) Urine Ketones Negative (Negative) Urine Blood Negative (Negative) Urine Nitrite Negative (Negative) Urine Bilirubin Negative (Negative) Urine Urobilinogen <2.0 (<2.0) mg/dL Ur Leukocyte Esterase Negative (Negative) Disposition Clinical Impression: Abdominal pain Disposition: HOME SELF-CARE Condition: Good Instructions (If sedation given, give patient instructions): Abdominal Pain (ED) Prescriptions: traMADol HCl [Ultram] 50 mg PO Q6H PRN #20 tab PRN Reason: Pain Is patient prescribed a controlled substance at d/c from ED?: No Referrals: None,Stated [Primary Care Provider] - 1-2 days Vincent Lee MD [Medical Doctor] - 1-2 days
== END 2021-10-28 06:19 | disposition home or self-care (01) ==
LOC: EC 18:57
DX: R10.11 Right upper quadrant pain (principal); R10.13 Epigastric pain; I10 Essential (primary) hypertension; J44.9 Chronic obstructive pulmonary disease, unspecified; E07.9 Disorder of thyroid, unspecified; M19.90 Unspecified osteoarthritis, unspecified site; F17.200 Nicotine dependence, unspecified, uncomplicated; Z79.82 Long term (current) use of aspirin; Z79.890 Hormone replacement therapy; Z79.899 Other long term (current) drug therapy; Z88.5 Allergy status to narcotic agent; Z88.6 Allergy status to analgesic agent
CPT/HCPCS: 36415; 93005; 80053; 83690; 85025; 81003; 76705; 74177; 99284; S0119; Q9967

== ENCOUNTER → 2022-01-07 | Outpatient (CLI) | payer BC, MEDICARE ==
--- NOTE | 2022-01-07 16:56 | NM ---
EXAMINATION TYPE: NM hepatobiliary w CCK DATE OF EXAM: 01/07/2022 COMPARISON: NONE INDICATION: Right Upper quadrant pain TECHNIQUE: After the intravenous administration of 4.5 mCi Tc 99m Mebrofenin hepatobiliary scintigrap hy is performed. Images were obtained immediately post injection. FINDINGS: There is prompt uptake and excretion of radiotracer by the liver. Extrahepatic ducts are identified at 12 minutes. The gallbladder is visualized within 14 minutes. Small bowel activity is noted within 46 minutes. At one hour CCK was administered, patient was injected with 1.7 mcg of Kinevac, and gallbladder eject ion fraction is calculated at 70 %, which is low. (Normal >35% and <80%.). IMPRESSION: 1. Biliary hypokinesia. No obstruction is evident.
== END | disposition home or self-care (01) ==
LOC: RADNMMAIN 06:42
PROVIDERS: ATTEND Surgery
DX: R10.11 Right upper quadrant pain (principal); K82.8 Other specified diseases of gallbladder
CPT/HCPCS: 78227; A9537

== ENCOUNTER 2022-02-20 06:12 | Day surgery (SDC) | payer BC, MEDICARE ==
--- NOTE | 2022-02-19 17:22 | P.GSHP ---
History of Present Illness H&P Date: 02/19/22 Chief Complaint: Chronic cholecystitis 61-year-old female seen in the office in December with complaints of right upper quadrant pain. She was in the ER in October. Patient has had a few episodes of pain. Pain usually radiates to the back. Associated with bloating and nausea. No change in the color of her skin urine or stool. Ultrasound showed no gallbladder abnormalities however she did have a positive Wang sign. Cat scan likewise showed no definite abnormalities to explain her pain. Patient then underwent HIDA scan which showed a low ejection fraction of 27%. Past Medical History Past Medical History: Cancer, COPD, GERD/Reflux, Hyperlipidemia, Hypertension, Osteoarthritis (OA), Thyroid Disorder Additional Past Medical History / Comment(s): skin CA,grave's disease,sinus problems. THYROID EYE DISEASE. History of Any Multi-Drug Resistant Organisms: None Reported Past Surgical History: Section, Heart Catheterization With Stent, Uterine Ablation Additional Past Surgical History / Comment(s): C-sec X2, eye surgery from graves Dx, sinus surgery, skin ca removed from breast,heart stents x4 Past Anesthesia/Blood Transfusion Reactions: No Reported Reaction Date of Last Stent Placement:: Mar 2021 Smoking Status: Current every day smoker - Past Family History Mother Family Medical History: Coronary Artery Disease (CAD), CVA/TIA, Diabetes Mellitus, Hypertension Father Family Medical History: Diabetes Mellitus, Rheumatoid Arthritis (RA) Additional Family Medical History / Comment(s): pericardial fluid removal x2 Brother(s) Family Medical History: Diabetes Mellitus Medications and Allergies Home Medications Medication Instructions Recorded Confirmed Type Levothyroxine Sodium [Synthroid] 100 mcg PO AC-BRKFST tab 12/24/16 02/18/22 Rx Nitroglycerin Sl Tabs [Nitrostat] 0.4 mg SUBLINGUAL Q5M PRN #25 tab 12/24/16 02/18/22 Rx Aspirin 81 mg PO HS 07/19/19 02/18/22 History amLODIPine [Norvasc] 2.5 mg PO HS 07/19/19 02/18/22 History Omeprazole [PriLOSEC] 40 mg PO HS 02/15/20 02/18/22 History Cholecalciferol [Vitamin D3 (25 25 mcg PO HS 04/03/21 02/18/22 History Mcg = 1000 Iu)] Atorvastatin [Lipitor] 80 mg PO HS 30 Days #30 tab 04/04/21 02/18/22 Rx Prasugrel [Effient] 10 mg PO DAILY 30 Days #30 tab 04/04/21 02/18/22 Rx Metoprolol Tartrate [Lopressor] 25 mg PO BID 30 Days #60 tab 04/05/21 02/18/22 Rx Albuterol Inhaler [Ventolin Hfa 1 - 2 puff INHALATION RT-Q6H PRN 02/18/22 02/18/22 History Inhaler] Allergies Allergy/AdvReac Type Severity Reaction Status Date / Time acetaminophen AdvReac Nausea & Verified 02/18/22 17:51 [From Tylenol-Codeine #3] Vomiting adhesive tape AdvReac Rash/Hives Verified 02/18/22 17:51 codeine AdvReac Nausea & Verified 02/18/22 17:51 [From Tylenol-Codeine #3] Vomiting diphenhydramine AdvReac dizzy,shaky, Verified 02/18/22 17:51 [From Benadryl] overtired hydrocodone [From Vicodin] AdvReac doesn't Verified 02/18/22 17:51 help pain @all Surgical - Exam Physical exam: General: Well-developed, well-nourished HEENT: Normocephalic, sclerae nonicteric Abdomen: Mild right upper quadrant tenderness, nondistended Extremities: No edema Neuro: Alert and oriented Assessment and Plan (1) Biliary dyskinesia Narrative/Plan: 61-year-old female with right upper quadrant pain and HIDA scan showing findings consistent with biliary dyskinesia. Options reviewed. We'll proceed with laparoscopic possible open cholecystectomy tomorrow. Risks of bleeding, infection, bile leak, bile duct injury, retained common bile duct stone, trocar injury, conversion to an open procedure, hernia, anesthesia related complications were reviewed. The patient understands and wishes to proceed. Status: Acute Code(s): K82.8 - OTHER SPECIFIED DISEASES OF GALLBLADDER SNOMED Code(s): 073856292
[~2022-02-20 06:12] MED LIST changes: +ACETAMINOPHEN TAB 500 MG TAB PO PRN; -ALPRAZolam 0.25 MG TAB PO PRN; -ALPRAZolam 0.5 MG TAB PO PRN; -ASPIRIN 325 MG TAB PO STA; -ATORVASTATIN 80 MG TAB PO STA; +DEXAMETHASONE SOD PHOSPHATE 4 MG/ML 1 ML VIAL IV ONE; +HEPARIN SODIUM,PORCINE/PF 5,000 UNIT/0.5 ML SYRINGE SQ PRN; +LACTATED RINGERS 1,000 ML IV SCH; +MIDAZOLAM 2 MG/2 ML VIAL IV PRN; -NITROGLYCERIN SL TABS 0.4 MG TAB SUBLINGUAL PRN; +ONDANSETRON 4 MG/2 ML VIAL IVP ONE; +SCOPOLAMINE 1 MG/72 HR PATCH TRANSDERM ONE; -SODIUM CHLORIDE 0.9% 1,000 ML in EMPTY BAG 1 BAG IV ONE
[2022-02-20] MEDS ORDERED: fentaNYL (PF) 50 MCG/ML 2 ML AMP IV PRN (07:00)
[2022-02-20] MEDS ORDERED: MIDAZOLAM 2 MG/2 ML VIAL ONE (07:33)
[2022-02-20] MEDS ORDERED: fentaNYL (PF) 50 MCG/ML 2 ML AMP ONE (07:33)
[2022-02-20] MEDS ORDERED: GLYCOPYRROLATE 0.2 MG/ML 2 ML VIAL ONE (07:33)
[2022-02-20] MEDS ORDERED: NEOSTIGMINE 1 MG/ML 10 ML VIAL ONE (07:33)
[2022-02-20] MEDS ORDERED: LIDOCAINE 2% INJ 20 MG/ML (2 ML VIAL) ONE (07:33)
[2022-02-20] MEDS ORDERED: ePHEDrine 50 MG/ML 1 ML VIAL ONE (07:33)
[2022-02-20] MEDS ORDERED: SUCCINYLCHOLINE CHLORIDE 200 MG/10 ML VIAL IV ONE (07:33)
[2022-02-20] MEDS ORDERED: KETAMINE 10 MG/ML 20 ML VIAL ONE (07:33)
[2022-02-20] MEDS ORDERED: PROPOFOL 10 MG/ML 20 ML VIAL IV ONE (07:33)
[2022-02-20] MEDS ORDERED: BUPIVACAIN-EPI 0.25%-1:200,000 30 ML VIAL SQ ONE ×2 (07:47)
--- NOTE | 2022-02-20 08:33 | P.OP ---
Date of Procedure: 02/20/22 Procedure(s) Performed: PREOPERATIVE DIAGNOSIS: Biliary dyskinesia POSTOPERATIVE DIAGNOSIS: Same PROCEDURE: Laparoscopic cholecystectomy SURGEON: Jesus EBL: Minimal see anesthesia record ANESTHESIA: Gen. COMPLICATIONS: None OPERATIVE PROCEDURE: The patient was brought and placed on the operating room table in the supine position. The patient was placed under general anesthesia at that time. The abdomen was prepped and draped in the usual sterile fashion. A small vertical infraumbilical incision was made. The fascia was grasped with the [place] forceps. The fascia was retracted anteriorly. The Veress needle was advanced into the peritoneal cavity. The saline drop test was normal. Insufflation took place up to 15 mmHg. A 5 mm optical trocar was advanced and the peritoneal cavity. 2 additional 5 mm trochars were placed in the right upper quadrant under direct visualization. A 12 mm trocar was advanced into the epigastric incision site. The gallbladder was retracted superiorly and laterally. The peritoneum overlying the infundibulum was bluntly dissected. The patient's cystic duct was visualized. The junction between the cystic duct common and hepatic duct was identified. The critical view of safety was achieved after blunt dissection. The cystic duct was then divided after p lacement of 3 12 mm clips on the patient's side and one on the specimen side. The cystic artery was identified and clipped as well. A small vessel was seen along the gallbladder fossa and clipped as well. The gallbladder was then removed from the liver bed using electrocautery. The gallbladder was then removed from the epigastric trocar site with an Endo Catch bag. The gallbladder fossa was irrigated with saline. There was no evidence of any bleeding or biliary drainage seen. The fascia at the 12 millimeter site was closed using a Yoav-Elizabeth 0 Vicryl stitch. The trochars were then removed. The skin at all 4 sites was closed using a 4-0 Monocryl stitch. Skin glue was utilized on the incision sites. At the end of this procedure the sponge and needle counts were correct. DISPOSITION: Stable to the recovery room
[2022-02-20] MEDS ORDERED: LACTATED RINGERS 1,000 ML IV ONE (08:39)
[2022-02-20] MEDS ORDERED: IBUPROFEN 600 MG TAB PO SCH (09:00)
[2022-02-20 09:01] VITALS: TEMP 97.3
[2022-02-20] MEDS ORDERED: IBUPROFEN 200 MG TAB PO ONE (10:10)
[2022-02-20 10:15] VITALS: BP 116/55; PULSE 64; RESP 16
[2022-02-20] MEDS ORDERED: ACETAMINOPHEN TAB 325 MG TAB PO SCH (12:00)
== END 2022-02-20 10:50 ==
LOC: OR 06:12
PROVIDERS: ATTEND Surgery
DX: K81.1 Chronic cholecystitis (principal); E05.00 Thyrotoxicosis with diffuse goiter without thyrotoxic crisis or storm; J44.9 Chronic obstructive pulmonary disease, unspecified; I10 Essential (primary) hypertension; Z85.828 Personal history of other malignant neoplasm of skin; Z98.891 History of uterine scar from previous surgery; Z95.5 Presence of coronary angioplasty implant and graft; Z98.890 Other specified postprocedural states; Z83.3 Family history of diabetes mellitus; Z82.49 Family history of ischemic heart disease and other diseases of the circulatory system; Z82.61 Family history of arthritis; Z82.3 Family history of stroke; F17.200 Nicotine dependence, unspecified, uncomplicated; Z79.890 Hormone replacement therapy; Z79.899 Other long term (current) drug therapy; Z88.5 Allergy status to narcotic agent; Z88.8 Allergy status to other drugs, medicaments and biological substances
CPT/HCPCS: 88304; 47562; J2250; J0330; J1100; J2710; J0690; J2405; J3010; J2704; J1644; J2001